=== PATIENT | female | born 1930 | race Caucasian/White ===

== ENCOUNTER 2019-12-17 18:06 | Inpatient (IN) | payer OTHER ==
[2019-12-17] MEDS ORDERED: SODIUM CHLORIDE 0.9% 500 ML INFUS.BAG IV ONE (18:24)
--- NOTE | 2019-12-17 18:24 | PDOC ---
History of Present Illness - General History Source: Patient Exam Limitations: Clinical Condition, Unresponsive - History of Present Illness Initial Comments: History limited bc patient obtunded upon arrival. Vianca Grover is an 89 YO F w a hx of parkinsons, PNA, HTN, HLD, recent stroke with new onset dysphagia who presents from [facility] because she was having a tonic clonic seizure and is likely septic. EMS states the seizure resolved after receiving versed. Patient is not able to provide any history as she is unresponsive. She arrived in the ER being bagged by EMS as they said she was profoundly hypoxic. She was also noted to be hypotensive upon arrival with a systolic in the 80's before being fluid resuscitated. I spoke with the patient's two daughters at length who are both prior RN's. 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 The patient usually goes to [facility] for her care but EMS brought her to [facility] today. Advanced directives: DNR/DNI - Does not want a central line or pressors. - Family would like IV fluids, antibiotics, CT scan, CXR, blood and urine work performed for diagnostic purposes. They want the patient to receive oxygen if she is hypoxic. They do not want any invasive life saving measures. PCP: Dr Toledo <Niall Yun - Last Filed: 12/18/19 12:33> <Nevaeh Molina - Last Filed: 12/18/19 14:59> - General Chief Complaint: Seizure Stated Complaint: SEIZURE Time Seen by Provider: 12/17/19 18:21 Past History <Niall Yun - Last Filed: 12/18/19 12:33> <Nevaeh Molina - Last Filed: 12/18/19 14:59> - Past Medical History Allergies/Adverse Reactions: Allergies Allergy/AdvReac Type Severity Reaction Status Date / Time codeine Allergy Verified 12/17/19 23:14 losartan Allergy Verified 12/17/19 23:14 Review of Systems - Review of Systems Able to Perform ROS?: No (Non-responsive) <Niall Yun - Last Filed: 12/18/19 12:33> *Physical Exam - Physical Exam General Appearance: Yes: Moderate Distress HEENT: positive: Normal ENT Inspection, Other (Pale, cold and dry) Neck: positive: Trachea midline, Supple Respiratory/Chest: positive: Labored Respiration, Crackles Cardiovascular: positive: Tachycardia Vascular Pulses: Dorsalis-Pedis (R): 2+, Doralis-Pedis (L): 2+ Gastrointestinal/Abdominal: positive: Soft Rectal Exam: positive: heme negative stool, normal rectal tone, hemorrhoids, other (Rectal temp - 100.1). negative: normal exam, melena Musculoskeletal: positive: Normal Inspection Extremity: positive: Coldness Integumentary: positive: Dry, Cold, Swelling Neurologic: positive: Respond to painful stimul <Niall Yun - Last Filed: 12/18/19 12:33> - Vital Signs Last Vital Signs Temp Pulse Resp BP Pulse Ox 100.1 F H 105 H 31 H 103/72 87 L 12/18/19 12:33 12/18/19 12:33 12/18/19 12:33 12/18/19 10:00 12/18/19 12:33 <Nevaeh Molina - Last Filed: 12/18/19 14:59> Vital Signs - Vital Signs #1 Time: 18:45 BP Location: Right Arm Blood Pressure Position: Supine Pulse Rate: 105 Respiratory Rate: 31 Temperature: 100.1 F Temperature Source: Rectal O2 Sat by Pulse Oximetry (%): 87 Oxygen Delivery Method: Room Air <Niall Yun - Last Filed: 12/18/19 12:33> ED Treatment Course - LABORATORY CBC & Chemistry Diagram: 12/18/19 05:30 12/18/19 05:30 <Niall Yun - Last Filed: 12/18/19 12:33> - LABORATORY CBC & Chemistry Diagram: 12/18/19 05:30 12/18/19 05:30 - ADDITIONAL ORDERS Additional order review: 12/17/19 19:20 RBC 3.39 L MCV 92.6 MCHC 33.0 RDW 14.4 MPV 7.7 Neutrophils % 87.7 H Lymphocytes % 6.1 L Monocytes % 5.8 Eosinophils % 0.0 Basophils % 0.4 - RADIOLOGY Radiology Studies Ordered: Category Date Time Status CHEST X-RAY PORTABLE* [RAD] Stat Radiology 12/17/19 18:22 Completed - Medications Given in the ED: ED Medications Discontinued Medications Generic Name Dose Route Start Last Admin Trade Name Barry PRN Reason Stop Dose Admin Acetaminophen 1,000 mg 12/17/19 18:25 12/17/19 19:16 Ofirmev Injection - IVPB 12/17/19 18:26 1,000 mg ONCE ONE Administration Piperacillin Sod/Tazobactam 50 mls @ 100 mls/hr 12/17/19 21:06 12/17/19 22:15 Sod 3.375 gm/ Dextrose IVPB 12/17/19 21:35 100 mls/hr ONCE ONE Administration Protocol Sodium Chloride 250 mls @ 250 mls/hr 12/18/19 00:36 12/18/19 00:50 Normal Saline - IV 12/18/19 01:35 250 mls/hr ASDIR STA Administration Sodium Chloride 1,000 mls @ 42 mls/hr 12/18/19 00:45 12/18/19 00:57 Normal Saline - IV 42 mls/hr ASDIR GARTH Administration Levetiracetam 1,000 mg 12/17/19 19:09 12/17/19 19:17 Keppra Injection - IVPB 12/17/19 19:10 1,000 mg ONCE ONE Administration Magnesium Sulfate 2 gm 12/18/19 07:45 12/18/19 10:00 Magnesium Sulfate IVPB 12/18/19 07:46 2 gm ONCE ONE Administration Sodium Chloride 1,000 ml 12/17/19 18:24 12/17/19 19:16 Normal Saline - IV 12/17/19 18:25 1,000 ml ONCE ONE Administration Vancomycin HCl 1,000 mg 12/17/19 21:06 12/17/19 22:05 Vancomycin (Pre-Docked) IVPB 12/17/19 21:07 1,000 mg ONCE ONE Administration Protocol <Nevaeh Molina - Last Filed: 12/18/19 14:59> Medical Decision Making - Medical Decision Making History limited bc patient obtunded upon arrival. Vianca Grover is an 89 YO F w a hx of parkinsons, PNA, HTN, HLD, recent stroke with new onset dysphagia who presents from [facility] because she was having a tonic clonic seizure and is likely septic. EMS states the seizure resolved after receiving versed. Patient is not able to provide any history as she is unresponsive. She arrived in the ER being bagged by EMS as they said she was profoundly hypoxic. She was also noted to be hypotensive upon arrival with a systolic in the 80's before being fluid resuscitated. I spoke with the patient's two daughters at length who are both prior RN's. Advanced directives: DNR/DNI - Does not want a central line or pressors. - Family would like IV fluids, antibiotics, CT scan, CXR, blood and urine work performed for diagnostic purposes. They want the patient to receive oxygen if she is hypoxic. They do not want any invasive life saving measures. Vital Signs Temp Pulse Resp BP Pulse Ox 100.1 F H 105 H 31 H 87 L 12/17/19 20:10 12/17/19 20:10 12/17/19 20:10 12/17/19 20:10 DDx IBNLT: Sepsis - likely PNA vs UTI vs Influenza, CVA/TIA, brain bleed, status epilepticus, electrolyte/metabolic disturbance Signing out patient to Dr. Garcia for ED workup, and final disposition <Niall Yun - Last Filed: 12/18/19 12:33> Discharge - Discharge Information Problems reviewed: Yes - Admission Yes <Niall Yun - Last Filed: 12/18/19 12:33> <Nevaeh Molina - Last Filed: 12/18/19 14:59> - Discharge Information Clinical Impression/Diagnosis: Seizure, Febrile illness, acute, Pneumonia AMS (altered mental status) Qualifiers: Altered mental status type: unspecified Qualified Code(s): R41.82 - Altered mental status, unspecified Condition: Guarded
[2019-12-17] MEDS ORDERED: ACETAMINOPHEN 1000 MG/100 ML VIAL (NON FORMULARY) IVPB ONE (18:25)
--- NOTE | 2019-12-17 18:47 | PDOC ---
Attending Attestation - Resident Resident Name: Niall Yun - ED Attending Attestation I have performed the following: I have examined & evaluated the patient, The case was reviewed & discussed with the resident, I agree w/resident's findings & plan - HPI HPI: 12/17/19 18:51 89 YOF with PMH CVA with residual dysphagia/aphasia., Parkinson's disease, DM2, hypothyroidism, b cell lymphoma, HLD, HTN, arthritis, osteoporosis, pAfib, PVD, presenting from [facility] for seizure activity and sepsis. she was found in respiratory distress, bradypneic down to 4s, EMS started bag mask ventilating. She was also hypotensive en route down to 90/50, receiving IVF. also received versed 2.5mg x1 for her seizure, which terminated. history limited from pt due to clinical condition, provided by EMS at the bedside and [facility] records. of note, pt is DNR/DNI, forms from [facility] reviewed PMD Dr Toledo 12/17/19 18:59 12/17/19 19:01 12/17/19 19:01 - Physicial Exam PE: 12/17/19 18:52 Physical exam General: somnolent, arousable to stimuli/pain. HEENT: NCAT, PERRL, EOMI, clear conjunctiva, anicteric, poor dentition. Neck: neck supple Resp: shallow breathing, diminished breath sounds b/l due to poor inspiratory effort CVS: RRR, no murmurs, 2+ peripheral pulses throughout, no peripheral edema Abdomen: soft, NTND, no rebound or guarding. Back: nontender, normal inspection and ROM MSK: no edema, CHURCH x4, ROM intact. No clubbing or cyanosis. normal bulk and tone. Extremities: no calf tenderness Neuro: somnolent. Skin: cool extremities, dry. no rash or skin discoloration. - Critical Care Time Total Critical Care Time: 30 (acute respiratory failure, sepsis) Critical Care Statement: The care of this patient involved high complexity decision making to prevent further life threatening deterioration of the patient 's condition and/or to evaluate & treat vital organ system(s) failure or risk of failure. - Medical Decision Making 12/17/19 18:55 initial vs with rectal LGF 100.1, HR 85, BP 80/50 sepsis workup. ddx. sepsis, bacteremia, UTI, pna, anemia, electrolyte/metabolic derangements, dehydration, organ failure, ARF now IVF, for her hypotension tylenol for fever keppra loaded here no sz here, s/p versed en route placed on supp O2 via nasal cannula with sats >95%, off bag mask ventilation, no cpap. DNR/DNI confirmed will contact [facility] to determine goals of care. Cinthia Jackson [phone] called at 7pm, no answer at number provided. labs/lytes, infectious workup, cxr, ct head. dispo pending s/o to Dr Quintero overnight. anticipate admission - as daughters at bedside do not want escalation of care ( pressors/central line/aggressive care, cpr, invasive procedures, dialysis) but ok with IV/hospitalization, abx, treat infection, reversible causes. 12/18/19 09:30 12/18/19 09:31
[2019-12-17] MEDS ORDERED: levETIRAcetam 500 MG/5 ML INJECTION VIAL IVPB ONE ×2 (19:09→20:02)
--- NOTE | 2019-12-17 19:22 | PDOC ---
ED Treatment Course - LABORATORY CBC & Chemistry Diagram: 12/18/19 05:30 12/18/19 05:30 Medical Decision Making - Medical Decision Making 12/17/19 19:21 Pt received on sign out from Dr. Yun. 89 y/o female presenting today with seizures. Given versed. Sepsis work up initiated. Plan to admit. DNR/DNI. No central line or vasopressors. Fluids and abx and diagnostics only. Labs, XR, CT pending. 12/17/19 19:57 EKG shows sinus rhythm with 1st degree AV block and PACs, 93 bpm, no ST elevation/depression, QTc 430, no axis deviation. 12/17/19 20:43 CT head shows no intracranial hemorrhage, moderate sized left temporal cortical infarct noted laterally of indeterminate age, small to moderate right cerebellar infarct of indeterminate age, several small chronic left cerebellar infarcts noted, moderate periventricular and subcortical ch ronic microvascular ischemic changes seen, moderate dilatation of lateral/third ventricles. 12/17/19 21:11 Labs reviewed. Laboratory Last Values WBC 9.7 K/mm3 (4.0-10.0) 12/17/19 19:20 RBC 3.39 M/mm3 (3.60-5.2) L 12/17/19 19:20 Hgb 10.4 GM/dL (10.7-15.3) L 12/17/19 19:20 Hct 31.4 % (32.4-45.2) L 12/17/19 19:20 MCV 92.6 fl (80-96) 12/17/19 19:20 MCH 30.6 pg (25.7-33.7) 12/17/19 19:20 MCHC 33.0 g/dl (32.0-36.0) 12/17/19 19:20 RDW 14.4 % (11.6-15.6) 12/17/19 19:20 Plt Count 402 K/MM3 (134-434) 12/17/19 19:20 MPV 7.7 fl (7.5-11.1) 12/17/19 19:20 Absolute Neuts (auto) 8.5 K/mm3 (1.5-8.0) H 12/17/19 19:20 Neutrophils % 87.7 % (42.8-82.8) H 12/17/19 19:20 Lymphocytes % 6.1 % (8-40) L 12/17/19 19:20 Monocytes % 5.8 % (3.8-10.2) 12/17/19 19:20 Eosinophils % 0.0 % (0-4.5) 12/17/19 19:20 Basophils % 0.4 % (0-2.0) 12/17/19 19:20 Nucleated RBC % 0 % (0-0) 12/17/19 19:20 PT with INR 11.40 SEC (9.7-13.0) 12/17/19 19:20 INR 0.97 (0.83-1.09) 12/17/19 19:20 PTT (Actin FS) 31.5 SECONDS (25.2-36.5) 12/17/19 19:20 Sodium 135 mmol/L (136-145) L 12/17/19 19:20 Potassium 4.9 mmol/L (3.5-5.1) 12/17/19 19:20 Chloride 103 mmol/L (98-107) 12/17/19 19:20 Carbon Dioxide 23 mmol/L (21-32) 12/17/19 19:20 Anion Gap 9 MMOL/L (8-16) 12/17/19 19:20 BUN 11.0 mg/dL (7-18) 12/17/19 19:20 Creatinine 0.9 mg/dL (0.55-1.3) 12/17/19 19:20 Est GFR (CKD-EPI)AfAm 66.63 12/17/19 19:20 Est GFR (CKD-EPI)NonAf 57.49 12/17/19 19:20 Random Glucose 136 mg/dL (74-106) H 12/17/19 19:20 Lactic Acid 4.2 mmol/L (0.4-2.0) H* 12/17/19 19:20 Calcium 8.3 mg/dL (8.5-10.1) L 12/17/19 19:20 Total Bilirubin 0.7 mg/dL (0.2-1) 12/17/19 19:20 AST 31 U/L (15-37) 12/17/19 19:20 ALT 18 U/L (13-61) 12/17/19 19:20 Alkaline Phosphatase 90 U/L (45-117) 12/17/19 19:20 Total Protein 6.8 g/dl (6.4-8.2) 12/17/19 19:20 Albumin 3.3 g/dl (3.4-5.0) L 12/17/19 19:20 Urine Color Yellow 12/17/19 19:05 Urine Appearance Clear 12/17/19 19:05 Urine pH 5.0 (5.0-8.0) 12/17/19 19:05 Ur Specific [place] 1.017 (1.010-1.035) 12/17/19 19:05 Urine Protein 30 (NEGATIVE) 12/17/19 19:05 Urine Glucose (UA) Negative (NEGATIVE) 12/17/19 19:05 Urine Ketones Negative (NEGATIVE) 12/17/19 19:05 Urine Blood Negative (NEGATIVE) 12/17/19 19:05 Urine Nitrite Negative (NEGATIVE) 12/17/19 19:05 Urine Bilirubin Negative (NEGATIVE) 12/17/19 19:05 Urine Urobilinogen 1.0 mg/dL (0.2-1.0) 12/17/19 19:05 Ur Leukocyte Esterase 1+ (NEGATIVE) H 12/17/19 19:05 12/17/19 21:30 CXR shows mild infiltrate at the left base no atelectasis or pneumothorax. Will start vanc/zosyn. 12/17/19 21:56 D/w JAMAAL Solo who accepts the patient for admission. 12/17/19 22:00 DPOA/Health Care Proxy: Cinthia Jackson (Daughter) [phone] 12/17/19 22:02 D/w Dr. Lobo (neuro) who recommends 750mg Keppra BID and MRI brain tomorrow morning. Discharge - Discharge Information Problems reviewed: Yes Clinical Impression/Diagnosis: Seizure, Febrile illness, acute, Pneumonia AMS (altered mental status) Qualifiers: Altered mental status type: unspecified Qualified Code(s): R41.82 - Altered mental status, unspecified Condition: Guarded - Admission Yes - Follow up/Referral - Patient Discharge Instructions - Post Discharge Activity
[2019-12-17 19:57] LABS: BASO % 0.4 % (0-2.0); HEMATOCRIT 31.4 % (32.4-45.2); HEMOGLOBIN 10.4 GM/dL (10.7-15.3); LYMPH % 6.1 % (8-40); MCH 30.6 pg (25.7-33.7); MEAN CELL VOLUME 92.6 fl (80-96); MEAN PLT VOLUME 7.7 fl (7.5-11.1); MONO % 5.8 % (3.8-10.2); NEUT % 87.7 % (42.8-82.8); PLATELET COUNT 402 K/MM3 (134-434); RBC 3.39 M/mm3 (3.60-5.2); RDW 14.4 % (11.6-15.6); WHITE BLOOD COUNT 9.7 K/mm3 (4.0-10.0)
[2019-12-17] MEDS ORDERED: ACETAMINOPHEN INJECTION 100 ML IVPB ONE (20:02)
[2019-12-17 20:09] LABS: INR 0.97 (0.83-1.09); PROTHROMBIN TIME (PATIENT) 11.4 SEC (9.7-13.0)
--- NOTE | 2019-12-17 20:11 | PDOC ---
ED Treatment Course - LABORATORY CBC & Chemistry Diagram: 12/18/19 05:30 12/18/19 05:30 - ADDITIONAL ORDERS Additional order review: 12/17/19 19:20 RBC 3.39 L MCV 92.6 MCHC 33.0 RDW 14.4 MPV 7.7 Neutrophils % 87.7 H Lymphocytes % 6.1 L Monocytes % 5.8 Eosinophils % 0.0 Basophils % 0.4 Medical Decision Making - Medical Decision Making 12/17/19 20:06 I received the patient on signout. She is DNR and DNI as per daughters who are nurses at the bedside. Pt comes with sudden altered MS in the past 24 hrs. Daughters are at the bedside and they tell us that pt was conversing and eating dinner yesterday and today she wont open her eyes and she has moaning. She is warm to the touch. BP is stable 131/70 Left arm; Abd soft NT ND +BS no rashes no c/c/e heart and lungs normall I called CT now and am sending pt over. As per daughters, pt had a stroke 2 mos ago. 12/17/19 20:[address] large ventricles; with periventricular lucencies; right cerebellar lucency and right thalamic area lucency We need to get rectal temp as well as official CT head read. UA pending 12/17/19 21:[address] all old findings. Pt has 1+ leukocytes in her urine CXR junky; single view. Likely to have a + pneumonia underlying. 12/17/19 21:07 O2sat 87% on RA. She will be admitted for pneumonia. Vanco/Zosyn ordered. 12/17/19 21:10 Pt will be admitted to the hospitalist for seizure, pneumonia, and AMS 12/17/19 21:31 mild imfiltrate of the left base. 12/17/19 22:18 flu culture pending. Pt will get neuro evaluation and MRI in house. Discharge - Discharge Information Problems reviewed: Yes Clinical Impression/Diagnosis: Seizure, Febrile illness, acute, Pneumonia AMS (altered mental status) Qualifiers: Altered mental status type: unspecified Qualified Code(s): R41.82 - Altered mental status, unspecified Condition: Guarded - Follow up/Referral - Patient Discharge Instructions - Post Discharge Activity
[2019-12-17 20:12] LABS: ACTIVATED PTT 31.5 SECONDS (25.2-36.5)
[2019-12-17 20:37] LABS: URINE APPEARANCE CLEAR; URINE BILIRUBIN NEGATIVE (NEGATIVE); URINE COLOR YELLOW; URINE GLUCOSE (UA) NEGATIVE (NEGATIVE); URINE KETONE NEGATIVE (NEGATIVE)
[2019-12-17 20:38] LABS: URINE LEUK ESTERASE 1+ (NEGATIVE); URINE NITRITE NEGATIVE (NEGATIVE); URINE PROTEIN 30 (NEGATIVE)
[2019-12-17 20:45] LABS: ALBUMIN 3.3 g/dl (3.4-5.0); BILIRUBIN,TOTAL 0.7 mg/dL (0.2-1); CALCIUM 8.3 mg/dL (8.5-10.1); CREATININE 0.9 mg/dL (0.55-1.3); TOT PROT 6.8 g/dl (6.4-8.2)
[2019-12-17 20:46] LABS: POTASSIUM 4.9 mmol/L (3.5-5.1)
[2019-12-17] MEDS ORDERED: PIPERACILLIN/TAZOB 3.375 GM 3.375 GM in DEXTROSE 5%-WATER - 50 ML IVPB ONE (21:06)
[2019-12-17] MEDS ORDERED: VANCOMYCIN 1 GM in D5W (PRE-DOCKED) 1,000 MG/250 ML IVPB ONE (21:06)
--- NOTE | 2019-12-17 21:55 | HP ---
Admitting History and Physical - Primary Care Physician PCP: Hellen Banks - Admission History of Present Illness: This is a 89 y/o female from [facility] with a PMHx of Parkinson's Disease, HTN , HLD, recent CVA with new onset Dysphagia (09/2019), Pneumonia. Who presents to the ED for tonic clonic seizure-like activity, r/o Sepsis. Patient is obtunded and family is not at bedside, to provide HPI. Per ED records: EMS states the seizure resolved after receiving versed. Patient is not able to provide any history as she is unresponsive. She arrived in the ER being bagged by EMS as they said she was profoundly hypoxic. She was also noted to be hypotensive upon arrival with a systolic in the 80's before being fluid resuscitated. I spoke with the patient's two daughters at length who are both prior RN's. They said there is a rampant outburst of the flu at the patient's usp and most people on her floor in [facility] are quarantined because too many people have the flu. The patient usually goes to [facility] for her care but EMS brought her to [facility] today. Advanced directives: DNR/DNI - Does not want a central line or pressors. - Family would like IV fluids, antibiotics, CT scan, CXR, blood and urine work performed for diagnostic purposes. They want the patient to receive oxygen if she is hypoxic. They do not want any invasive life saving measures. 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: CVA (Aphasia, Dysphagia), Parkinson's Cardiovascular: Yes: AFIB, HTN, Other (PVD) Heme/Onc: Yes: Other (B Cell Lymphoma) Musculoskeletal: Yes: Osteoarthritis Endocrine: Yes: Diabetes Mellitus, Hypothyroidism, Other (Osteoporosis) - Advance Directives Advance Directives: Yes: Health Care Proxy, DNR (DNI), MOLST - Smoking History Smoking history: Unknown if ever smoked - Social History Usual Living Arrangement: Yes: Longterm ADL: Support Services History of Recent Travel: No Home Medications - Allergies Allergies/Adverse Reactions: Allergies Allergy/AdvReac Type Severity Reaction Status Date / Time codeine Allergy Verified 12/17/19 23:14 losartan Allergy Verified 12/17/19 23:14 Family Medical History Family History: Unable to Obtain Review of Systems Unable to obtain ROS, reason: Clinical Condition Physical Examination Vital Signs: Vital Signs Temperature 100.1 F H 12/17/19 20:13 Pulse Rate 105 H 12/17/19 20:13 Respiratory Rate 31 H 12/17/19 20:13 Blood Pressure O2 Sat by Pulse Oximetry (%) 87 L 12/17/19 20:13 Constitutional: Yes: Thin, Other (Obtunded- Post Tictal) Eyes: Yes: Conjunctiva Clear, PERRL HENT: Yes: WNL, Atraumatic, Normocephalic Neck: Yes: WNL, Supple, Trachea Midline Cardiovascular: Yes: Tachycardia, S1, S2 Respiratory: Yes: Diminished, On Nasal O2 Gastrointestinal: Yes: WNL, Normal Bowel Sounds, Soft Renal/: Yes: Incontinence Breast(s): Yes: WNL Musculoskeletal: Yes: WNL Extremities: Yes: WNL Edema: No Peripheral Pulses WNL: Yes Neurological: Yes: Pre-Existing Deficit, Unresponsive, Other (Post Tictal) Psychiatric: Yes: Other (Post Tictal) Labs: CBC, BMP 12/17/19 19:20 12/17/19 19:20 Laboratory Results - last 24 hr 12/17/19 12/17/19 12/17/19 19:05 19:20 19:20 WBC 9.7 RBC 3.39 L Hgb 10.4 L Hct 31.4 L MCV 92.6 MCH 30.6 MCHC 33.0 RDW 14.4 Plt Count 402 MPV 7.7 Absolute Neuts (auto) 8.5 H Neutrophils % 87.7 H Lymphocytes % 6.1 L Monocytes % 5.8 Eosinophils % 0.0 Basophils % 0.4 Nucleated RBC % 0 PT with INR 11.40 INR 0.97 PTT (Actin FS) 31.5 VBG pH POC VBG pCO2 POC VBG pO2 VBG HCO3 VBG O2 Sat (Fabrizio) VBG Base Excess Sodium Potassium Chloride Carbon Dioxide Anion Gap BUN Creatinine Est GFR (CKD-EPI)AfAm Est GFR (CKD-EPI)NonAf Random Glucose Hemoglobin A1c % Lactic Acid Calcium Phosphorus Magnesium Total Bilirubin AST ALT Alkaline Phosphatase Total Protein Albumin TSH Free T4 Thyroxine (T4) Resin T3 Uptake Urine Color Yellow Urine Appearance Clear Urine pH 5.0 Ur Specific [place] 1.017 Urine Protein 30 Urine Glucose (UA) Negative Urine Ketones Negative Urine Blood Negative Urine Nitrite Negative Urine Bilirubin Negative Urine Urobilinogen 1.0 Ur Leukocyte Esterase 1+ H Influenza A (Rapid) Influenza B (Rapid) 12/17/19 12/17/19 12/17/19 19:20 19:20 21:57 WBC RBC Hgb Hct MCV MCH MCHC RDW Plt Count MPV Absolute Neuts (auto) Neutrophils % Lymphocytes % Monocytes % Eosinophils % Basophils % Nucleated RBC % PT with INR INR PTT (Actin FS) VBG pH POC VBG pCO2 POC VBG pO2 VBG HCO3 VBG O2 Sat (Fabrizio) VBG Base Excess Sodium 135 L Potassium 4.9 Chloride 103 Carbon Dioxide 23 Anion Gap 9 BUN 11.0 Creatinine 0.9 Est GFR (CKD-EPI)AfAm 66.63 Est GFR (CKD-EPI)NonAf 57.49 Random Glucose 136 H Hemoglobin A1c % Lactic Acid 4.2 H* Calcium 8.3 L Phosphorus Magnesium Total Bilirubin 0.7 AST 31 ALT 18 Alkaline Phosphatase 90 Total Protein 6.8 Albumin 3.3 L TSH Free T4 Thyroxine (T4) Resin T3 Uptake Urine Color Urine Appearance Urine pH Ur Specific [place] Urine Protein Urine Glucose (UA) Urine Ketones Urine Blood Urine Nitrite Urine Bilirubin Urine Urobilinogen Ur Leukocyte Esterase Influenza A (Rapid) Negative Influenza B (Rapid) Negative 12/17/19 23:20 WBC RBC Hgb Hct MCV MCH MCHC RDW Plt Count MPV Absolute Neuts (auto) Neutrophils % Lymphocytes % Monocytes % Eosinophils % Basophils % Nucleated RBC % PT with INR INR PTT (Actin FS) VBG pH POC VBG pCO2 POC VBG pO2 VBG HCO3 VBG O2 Sat (Fabrizio) VBG Base Excess Sodium Potassium Chloride Carbon Dioxide Anion Gap BUN Creatinine Est GFR (CKD-EPI)AfAm Est GFR (CKD-EPI)NonAf Random Glucose Hemoglobin A1c % Lactic Acid 1.5 Calcium Phosphorus Magnesium Total Bilirubin AST ALT Alkaline Phosphatase Total Protein Albumin TSH Free T4 Thyroxine (T4) Resin T3 Uptake Urine Color Urine Appearance Urine pH Ur Specific [place] Urine Protein Urine Glucose (UA) Urine Ketones Urine Blood Urine Nitrite Urine Bilirubin Urine Urobilinogen Ur Leukocyte Esterase Influenza A (Rapid) Influenza B (Rapid) Intake & Output 12/15/19 12/16/19 12/17/19 12/18/19 23:59 23:59 23:59 23:59 Weight 58.967 kg Current Medications Generic Name Dose Route Start Last Admin Trade Name Freq PRN Reason Stop Dose Admin Acetaminophen 650 mg 12/18/19 08:05 Ofirmev Injection - IVPB 12/19/19 08:05 Q6H PRN FEVER Heparin Sodium (Porcine) 5,000 unit 12/17/19 22:00 12/17/19 22:16 Heparin - SQ 5,000 unit BID GARTH Administration Sodium Chloride 1,000 mls @ 42 mls/hr 12/18/19 00:45 12/18/19 00:57 Normal Saline - IV 42 mls/hr ASDIR GARTH Administration Vancomycin HCl 750 mg/ 250 mls @ 166.667 mls/hr 12/18/19 10:00 Dextrose IVPB Q12H GARTH Protocol Piperacillin Sod/Tazobactam 50 mls @ 100 mls/hr 12/18/19 10:00 Sod 3.375 gm/ Dextrose IVPB Q8H-IV GARTH Protocol Piperacillin Sod/Tazobactam 50 mls @ 100 mls/hr 12/18/19 10:00 Sod 3.375 gm/ Dextrose IVPB 12/19/19 02:29 Q8H-IV GARTH Protocol Vancomycin HCl 750 mg/ 250 mls @ 166.667 mls/hr 12/18/19 10:00 Dextrose IVPB 12/18/19 23:29 Q12H GARTH Levetiracetam 750 mg 12/18/19 10:00 Keppra Injection - IVPB BID GARTH Imaging - Results Chest X-ray: Image Reviewed Cat Scan: Report Reviewed, Image Reviewed MRI: Pending EKG: Image Reviewed Problem List - Problems (1) New onset seizure Code(s): R56.9 - UNSPECIFIED CONVULSIONS (2) Sepsis Code(s): A41.9 - SEPSIS, UNSPECIFIED ORGANISM (3) Pneumonia Code(s): J18.9 - PNEUMONIA, UNSPECIFIED ORGANISM (4) Acute metabolic encephalopathy Code(s): G93.41 - METABOLIC ENCEPHALOPATHY (5) Hypertension Code(s): I10 - ESSENTIAL (PRIMARY) HYPERTENSION (6) Afib Code(s): I48.91 - UNSPECIFIED ATRIAL FIBRILLATION (7) Parkinson disease Code(s): G20 - PARKINSON'S DISEASE (8) CVA, old, aphasia Code(s): I69.320 - APHASIA FOLLOWING CEREBRAL INFARCTION (9) Diabetes mellitus Code(s): E11.9 - TYPE 2 DIABETES MELLITUS WITHOUT COMPLICATIONS (10) Hypothyroidism Code(s): E03.9 - HYPOTHYROIDISM, UNSPECIFIED Assessment/Plan This is a 89 y/o woman with a PMHx of CVA (09/2019). Admitted to Telemetry for New Onset Seizure, Acute Metabolic Encephalopathy, Sepsis, Pneumonia for further evaluation of their emergent condition. Plan: # New Onset Seizures Admit to Telemetry Continue cardiac monitoring Head CT- reviewed Keppra given in ED, will continue Appreciate Neurology consult Seizure Precautions Fall Precautions NPO Monitor CBC, BMP HgbA1c in am Gentle IVF # Acute Metabolic Encephalopathy See Above # Sepsis Likely secondary to Pneumonia qSOFA 2 Blood Cultures, Urine Culture-pending Lactic Acid 4.2, will trend Fluid Resuscitation given in ED Maintain MAP > 65 Continue Vancomycin, Zosyn ID consult Gentle IVF # Pneumonia Will treat for HAP vs Aspiration [id number] 4 Blood Cultures-pending Urine Culture-pending Vancomcyin, Zosyn started in ED, will continue renal dosing Appreciate ID consult Monitor CBC, BMP Monitor vitals #CVA hx Aphasia, Dysphagia Head CT- reviewed Appreciate Neuro consult Patient is currently obtunded likely due to new onset seizure Hold Meds for now # HTN Hold all meds secondary to Hypotension Continue cardiac monitoring Monitor renal function # Diabetes Mellitus stable BGMs Hold ISS secondary to NPO, patient is obtunded Monitor BMP # Parkinson's Disease Fall Precautions Hold meds secondary to patient's clinical condition # Afib [id number] EKG- reviewed No med list available, day team to review in am Consider Cardiology consult for further management # Hypothyroidism TSH in am No med list available, day team to review in am FEN NS@42ml/hr Replete lytes prn, Calcium Corrected 8.9 NPO DVT ppx OOB SCDs Heparin SQ Code Status: DNR/DNI, MOLST, HCP Cinthia Jackson (daughter) [phone] Dispo: Requires Inpatient Care Visit type - Emergency Visit Emergency Visit: Yes ED Registration Date: 12/17/19 Care time: The patient presented to the Emergency Department on the above date and was hospitalized for further evaluation of their emergent condition. - New Patient This patient is new to me today: Yes Date on this admission: 12/17/19 - Critical Care Critical Care patient: No
[2019-12-17] MEDS ORDERED: PIPERACILLIN/TAZOB 3.375 GM 3.375 GM/50 ML BAG IVPB ONE (22:08)
[2019-12-17] MEDS ORDERED: VANCOMYCIN 1 GRAM (PRE-DOCKED) 1,000 MG/250 ML BAG IVPB ONE (22:08)
[2019-12-17] MEDS ORDERED: HEPARIN NA (PORCINE) 5,000 UNITS/ML 1ML VIAL ONE (22:08)
[2019-12-17] MEDS: HEPARIN NA (PORCINE) 5,000 UNITS/ML 1ML VIAL SQ SCH (22:16)
[2019-12-18] MEDS ORDERED: SODIUM CHLORIDE 250 ML IV STA (00:36)
[2019-12-18] MEDS ORDERED: SODIUM CHLORIDE 1,000 ML IV SCH (00:45)
[2019-12-18 06:28] LABS: BASO % 0.7 % (0-2.0); EOS % 0.8 % (0-4.5); HEMATOCRIT 23.4 % (32.4-45.2); HEMOGLOBIN 8.2 GM/dL (10.7-15.3); LYMPH % 26.7 % (8-40); MCH 31.8 pg (25.7-33.7); MCHC 34.9 g/dl (32.0-36.0); MEAN CELL VOLUME 91.2 fl (80-96); MEAN PLT VOLUME 7.4 fl (7.5-11.1); MONO % 10.6 % (3.8-10.2); NEUT % 61.2 % (42.8-82.8); PLATELET COUNT 318 K/MM3 (134-434); RBC 2.56 M/mm3 (3.60-5.2); RDW 13.7 % (11.6-15.6); WHITE BLOOD COUNT 6.5 K/mm3 (4.0-10.0)
[2019-12-18 06:48] LABS: VENOUS PC02 33.9 mmHg (38-52); VENOUS PH 7.42 (7.31-7.41)
[2019-12-18 06:56] LABS: VENOUS PO2 < 49 mmHg (28-48)
[2019-12-18 07:30] LABS: BLOOD UREA NITROGEN 10.3 mg/dL (7-18); CALCIUM 7.8 mg/dL (8.5-10.1); CREATININE 0.7 mg/dL (0.55-1.3); MAGNESIUM 1.1 mg/dL (1.8-2.4); PHOSPHOROUS 2.7 mg/dL (2.5-4.9); POTASSIUM 3.8 mmol/L (3.5-5.1)
[2019-12-18] MEDS ORDERED: MAGNESIUM SULF 50% (8.12 MEQ/2 ML-1 GM VIAL) IVPB ONE (07:45)
[2019-12-18] MEDS ORDERED: ACETAMINOPHEN 1000 MG/100 ML VIAL (NON FORMULARY) IVPB PRN ×2 (08:05→19:47)
[2019-12-18] MEDS ORDERED: PIPERACILLIN/TAZOB 3.375 GM 3.375 GM in DEXTROSE 5%-WATER - 50 ML IVPB SCH ×2 (10:00→18:00)
[2019-12-18] MEDS ORDERED: VANCOMYCIN 750 MG in DEXTROSE 5%-WATER - 250 ML IVPB SCH ×2 (10:00→22:00)
[2019-12-18] MEDS ORDERED: levETIRAcetam 500 MG/5 ML INJECTION VIAL IVPB SCH (10:00)
[2019-12-18] MEDS ORDERED: HEPARIN NA (PORCINE) 5,000 UNITS/ML 1ML VIAL ONE (10:36)
[2019-12-18] MEDS ORDERED: PIPERACILLIN/TAZOB 3.375 GM 3.375 GM/50 ML BAG IVPB ONE (10:36)
[2019-12-18] MEDS ORDERED: MAGNESIUM SULF 50% (8.12 MEQ/2 ML-1 GM VIAL) ONE (10:36)
[2019-12-18] MEDS ORDERED: MAGNESIUM 1GM/D5W - 1 GM/100 ML IVPB IVPB ONE (10:36)
[2019-12-18] MEDS ORDERED: levETIRAcetam 500 MG/5 ML INJECTION VIAL IVPB ONE (10:59)
[2019-12-18] MEDS: HEPARIN NA (PORCINE) 5,000 UNITS/ML 1ML VIAL SQ SCH ×2 (12:00→22:20)
--- NOTE | 2019-12-18 13:19 | CON.ID ---
Consult - History of Present Illness History of Present Illness: 89 y.o. female with PMH of Parkinson's, DM, CVA 2 months ago with dysphagia, AFIB, HTN, HLD and PNA sent from [facility] after episode of tonic clonic seizure and development of unresponsiveness. In the ER, she was noted to be lethargic/unresponsive and not a source of history. Reported that as per daughters there is an Influenza outbreak. Upon arrival in the ER she was noted to be obtunded, hypotensive, hypoxic, bradycardic with a low grade fever of 100.1F and lactic acid level of 4.2. CXR reveals possible Lt basilar infiltrate vs atelectasis. CT head did not show acute findings. She was started on IV fluids and empiric broad spectrum antibiotics. Pt was At this time pt remains extremely lethargic but arousable, without obvious acute distress with O2 mask. Still with low grade fever, tachycardia. 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: CVA (Aphasia, Dysphagia), Parkinson's Cardio/Vascular: Yes: AFIB, HTN, Other (PVD) Pulmonary: No: Asthma, Bronchitis, Cancer, COPD, O2 Dependent, Pneumonia, Previously Intubated, Pulmonary Embolus, Pulmonary Fibrosis, Sleep Apnea, Other Gastrointestinal: No: Ascites, Cancer, Constipation, Crohn's Disease, Diverticulitis, Diverticulosis, Esophageal Varices, Gastritis, GERD, GI Bleed, Hemorrhoids, Hiatal Hernia, Inflamatory Bowel Disease, Irritable Bowel Disease, Pancreatitis, Peptic Ulcer Disease, Ulcerative Colitis, Other Hepatobiliary: No: Cirrhosis, Cholelithiasis, Cholecystitis, Choledocholithiasis , Hepatitis A, Hepatitis B, Hepatitis C, Other Renal/: No: Renal Failure, Renal Inusuff, BPH, Cancer, Hematuria, Hemodialysis , Neurogenic Bladder, Renal Calculi, UTI, Other Reproductive: No: Ectopic , Endometriosis, Fibroids, PID, Polycystic Ovary Syndrome, Postmenopausal, Other Heme/Onc: No: Anemia, B12 Deficiency, Bleeding Disorder, Cancer, Current Chemotherapy, Current Radiation Therapy, Hemochromatosis, Hypercoaguable State, Myeloproliferative Synd, Sickle Cell Disease, Sickle Cell Trait, Thrombocytopenia, Other Infectious Disease: No: AIDS, C-Diff, Herpes Zoster, HIV, MRSA, STD's, Tuberculosis, VREF, Other Psych: No: Addictions, Anxiety, Bipolar, Depression, Panic, Psychosis, Schizophrenia, Other Musculoskeletal: Yes: Osteoarthritis Rheumatology: No: Fibromyalgia, Gout, Lupus, Rheumatoid Arthritis, Sarcoidosis, Vasculitis, Other ENT: No: Allergic Rhinitis, Sinusitis, Other Endocrine: Yes: Diabetes Mellitus, Hypothyroidism, Other (Osteoporosis) Dermatology: No: Basal Cell, Cellulitis, Eczema, Melanoma, Psoriasis, Squamous Cell, Other - Alcohol/Substance Use Hx Alcohol Use: No - Smoking History Smoking history: Unknown if ever smoked Have you smoked in the past 12 months: No - Social History Usual Living Arrangement: Detention ADL: Support Services History of Recent Travel: No Home Medications - Allergies Allergies/Adverse Reactions: Allergies Allergy/AdvReac Type Severity Reaction Status Date / Time codeine Allergy Verified 12/17/19 23:14 losartan Allergy Verified 12/17/19 23:14 Family Medical History Family History: Unable to Obtain Review of Systems Unable to obtain ROS, reason: Pt obtunded Physical Exam Vital Signs: Vital Signs Temperature 100.1 F H 12/18/19 12:33 Pulse Rate 105 H 12/18/19 12:33 Respiratory Rate 31 H 12/18/19 12:33 Blood Pressure 103/72 12/18/19 10:00 O2 Sat by Pulse Oximetry (%) 87 L 12/18/19 12:33 Constitutional: Yes: No Distress. No: Well Nourished, Calm, Anxious, Ashen, Cachectic, Diaphoresis, Mild Distress, Moderate Distress, Severe Distress, Obese , Pallor, Poor Hygeine, Thin, Other Eyes: Yes: Conjunctiva Clear. No: WNL, EOM Intact, Cataracts, Diplopia, Occular Prosthesis, PERRL, Ptosis, Sclera Icterus, Tearing, Other HENT: Yes: Atraumatic, Normocephalic. No: WNL, Drooling, Epistaxis, Hoarseness , Nasal Congestion, Pharyngeal Erythema, Rhinnorhea, Thrush, Tonsillar Exudate, Other Neck: Yes: Supple, Trachea Midline. No: WNL, Decreased ROM, Lymphadenopathy, Rigid, Tenderness, Thyromegaly, Other Cardiovascular: Yes: Tachycardia. No: WNL, Regular Rate and Rhythm, Bradycardia , Pulse Irregular, Bruit, JVD, Gallop, Murmur, Rub, S1, S2, S3, S4, Varicosities , Other Respiratory: Yes: Diminished (poor inspiratory effort) Gastrointestinal: Yes: Normal Bowel Sounds, Soft Renal/: No: WNL, Anuria, Bladder Distention, CVA Tenderness - Left, CVA Tenderness - Right, [place]alpando Present, Hematuria, Incontinence, Menses Present, Oliguria, Polyuria, , Scrotal Edema, Urethral Discharge, Vaginal Bleeding, Vaginal Discharge, Other Musculoskeletal: Yes: WNL. No: Back Pain, Joint Stiffness, Joint Swelling, Muscle Pain, Muscle Weakness, Other Extremities: Yes: WNL. No: Amputation, Calf Tenderness, Cold, Cool, Cyanosis, Deformity, Delayed Capillary Refill, Erythema, External Rotation, Internal Rotation, Pallor, Shortened, Other Edema: No Peripheral Pulses WNL: Yes Integumentary: Yes: WNL. No: Body Piercing, Bruising, Erythema, Incision, Jaundice, Laceration, Petechiae, Pressure Ulcer, Rash, Skin Tear, Tattoos, Tenting, Onychomycosis, Venous Stasis Changes, Other Neurological: Yes: Lethargy Labs: CBC, BMP 12/18/19 05:30 12/18/19 05:30 Laboratory Tests 12/17/19 12/17/19 12/17/19 19:05 19:20 19:20 WBC 9.7 RBC 3.39 L Hgb 10.4 L Hct 31.4 L MCV 92.6 MCH 30.6 MCHC 33.0 RDW 14.4 Plt Count 402 MPV 7.7 Absolute Neuts (auto) 8.5 H Neutrophils % 87.7 H Lymphocytes % 6.1 L Monocytes % 5.8 Eosinophils % 0.0 Basophils % 0.4 Nucleated RBC % 0 PT with INR 11.40 INR 0.97 PTT (Actin FS) 31.5 VBG pH POC VBG pCO2 POC VBG pO2 VBG HCO3 VBG O2 Sat (Fabrizio) VBG Base Excess Sodium Potassium Chloride Carbon Dioxide Anion Gap BUN Creatinine Est GFR (CKD-EPI)AfAm Est GFR (CKD-EPI)NonAf Random Glucose Hemoglobin A1c % Lactic Acid Calcium Phosphorus Magnesium Total Bilirubin AST ALT Alkaline Phosphatase Total Protein Albumin TSH Free T4 Thyroxine (T4) Resin T3 Uptake Urine Color Yellow Urine Appearance Clear Urine pH 5.0 Ur Specific [place] 1.017 Urine Protein 30 Urine Glucose (UA) Negative Urine Ketones Negative Urine Blood Negative Urine Nitrite Negative Urine Bilirubin Negative Urine Urobilinogen 1.0 Ur Leukocyte Esterase 1+ H Influenza A (Rapid) Influenza B (Rapid) 12/17/19 12/17/19 12/17/19 19:20 19:20 21:57 WBC RBC Hgb Hct MCV MCH MCHC RDW Plt Count MPV Absolute Neuts (auto) Neutrophils % Lymphocytes % Monocytes % Eosinophils % Basophils % Nucleated RBC % PT with INR INR PTT (Actin FS) VBG pH POC VBG pCO2 POC VBG pO2 VBG HCO3 VBG O2 Sat (Fabrizio) VBG Base Excess Sodium 135 L Potassium 4.9 Chloride 103 Carbon Dioxide 23 Anion Gap 9 BUN 11.0 Creatinine 0.9 Est GFR (CKD-EPI)AfAm 66.63 Est GFR (CKD-EPI)NonAf 57.49 Random Glucose 136 H Hemoglobin A1c % Lactic Acid 4.2 H* Calcium 8.3 L Phosphorus Magnesium Total Bilirubin 0.7 AST 31 ALT 18 Alkaline Phosphatase 90 Total Protein 6.8 Albumin 3.3 L TSH Free T4 Thyroxine (T4) Resin T3 Uptake Urine Color Urine Appearance Urine pH Ur Specific [place] Urine Protein Urine Glucose (UA) Urine Ketones Urine Blood Urine Nitrite Urine Bilirubin Urine Urobilinogen Ur Leukocyte Esterase Influenza A (Rapid) Negative Influenza B (Rapid) Negative 12/17/19 12/18/19 12/18/19 23:20 05:30 05:30 WBC 6.5 RBC 2.56 L Hgb 8.2 L Hct 23.4 L D MCV 91.2 MCH 31.8 MCHC 34.9 RDW 13.7 Plt Count 318 D MPV 7.4 L Absolute Neuts (auto) 4.0 Neutrophils % 61.2 D Lymphocytes % 26.7 D Monocytes % 10.6 H D Eosinophils % 0.8 D Basophils % 0.7 Nucleated RBC % 0 PT with INR INR PTT (Actin FS) VBG pH POC VBG pCO2 POC VBG pO2 VBG HCO3 VBG O2 Sat (Fabrizio) VBG Base Excess Sodium 139 Potassium 3.8 Chloride 110 H Carbon Dioxide 24 Anion Gap 5 L BUN 10.3 Creatinine 0.7 Est GFR (CKD-EPI)AfAm 90.29 Est GFR (CKD-EPI)NonAf 77.90 Random Glucose 75 Hemoglobin A1c % Lactic Acid 1.5 Calcium 7.8 L Phosphorus 2.7 Magnesium 1.1 L Total Bilirubin AST ALT Alkaline Phosphatase Total Protein Albumin TSH 8.41 H Free T4 1.01 Thyroxine (T4) 7.0 Resin T3 Uptake 39.1 H Urine Color Urine Appearance Urine pH Ur Specific [place] Urine Protein Urine Glucose (UA) Urine Ketones Urine Blood Urine Nitrite Urine Bilirubin Urine Urobilinogen Ur Leukocyte Esterase Influenza A (Rapid) Influenza B (Rapid) 12/18/19 12/18/19 05:30 06:30 WBC RBC Hgb Hct MCV MCH MCHC RDW Plt Count MPV Absolute Neuts (auto) Neutrophils % Lymphocytes % Monocytes % Eosinophils % Basophils % Nucleated RBC % PT with INR INR PTT (Actin FS) VBG pH 7.42 H POC VBG pCO2 33.9 L POC VBG pO2 < 49 H VBG HCO3 21.5 L VBG O2 Sat (Fabrizio) 72.6 VBG Base Excess -2.2 L Sodium Potassium Chloride Carbon Dioxide Anion Gap BUN Creatinine Est GFR (CKD-EPI)AfAm Est GFR (CKD-EPI)NonAf Random Glucose Hemoglobin A1c % 5.6 Lactic Acid Calcium Phosphorus Magnesium Total Bilirubin AST ALT Alkaline Phosphatase Total Protein Albumin TSH Free T4 Thyroxine (T4) Resin T3 Uptake Urine Color Urine Appearance Urine pH Ur Specific [place] Urine Protein Urine Glucose (UA) Urine Ketones Urine Blood Urine Nitrite Urine Bilirubin Urine Urobilinogen Ur Leukocyte Esterase Influenza A (Rapid) Influenza B (Rapid) Influenza A/B rapid : negative Blood/Urine cultures : pending Imaging - Results Chest X-ray: Report Reviewed Cat Scan: Report Reviewed Problem List - Problems (1) AMS (altered mental status) Code(s): R41.82 - ALTERED MENTAL STATUS, UNSPECIFIED Qualifiers: Altered mental status type: unspecified Qualified Code(s): R41.82 - Altered mental status, unspecified (2) Afib Code(s): I48.91 - UNSPECIFIED ATRIAL FIBRILLATION (3) CVA, old, aphasia Code(s): I69.320 - APHASIA FOLLOWING CEREBRAL INFARCTION (4) Diabetes mellitus Code(s): E11.9 - TYPE 2 DIABETES MELLITUS WITHOUT COMPLICATIONS (5) Hypothyroidism Code(s): E03.9 - HYPOTHYROIDISM, UNSPECIFIED (6) New onset seizure Code(s): R56.9 - UNSPECIFIED CONVULSIONS (7) Parkinson disease Code(s): G20 - PARKINSON'S DISEASE (8) Pneumonia Code(s): J18.9 - PNEUMONIA, UNSPECIFIED ORGANISM (9) Sepsis Code(s): A41.9 - SEPSIS, UNSPECIFIED ORGANISM Assessment/Plan 89 y.o. female with PMH of Parkinson's, DM, CVA 2 months ago with dysphagia, AFIB, HTN, HLD and PNA sent from [facility] after episode of tonic clonic seizure and development of unresponsiveness. Noted to have low grade fevers, tachycardia, hypoxia, and elevated lactate with Lt basilar infiltrate on CXR Sepsis HCAP vs Aspiration PNA Seizure AMS Acute hypoxic respiratory failure Fever Hx of recent CVA with dysphagia Lactic acidosis - normalized Parkinson's DM Hypothyroidism AFIB HTN HLD -- continue Zosyn/Vancomycin IV empirically -- follow up blood culture results, monitor temp trend -- Vancomycin trough prior to 4th dose, monitor renal function -- supplemental O2, fluids as tolerated -- seizure/aspiration precautions -- monitor mental status, respiratory status, vitals closely -- Neurology evaluation -- Pt is DNR/DNI, with family reported to not want invasive measures Will follow Thank you
[2019-12-18] MEDS ORDERED: LORazepam 2 MG/ML SDV VIAL IM PRN (14:53)
--- NOTE | 2019-12-18 14:57 | PN ---
Progress Note, Physician History of Present Illness: pt seen/ examined in Er Chart reviewed Case d/w Pts daughter as well as RN Pt lethargic/ uncomfortable Dont follow commands - Current Medication List Current Medications: Active Medications Acetaminophen (Ofirmev Injection -) 650 mg IVPB Q6H PRN PRN Reason: FEVER Stop: 12/19/19 08:05 Heparin Sodium (Porcine) (Heparin -) 5,000 unit SQ BID GARTH Last Admin: 12/18/19 12:00 Dose: 5,000 unit Vancomycin HCl 750 mg/ (Dextrose) 250 mls @ 166.667 mls/hr IVPB Q12H GARTH; Protocol Piperacillin Sod/Tazobactam (Sod 3.375 gm/ Dextrose) 50 mls @ 100 mls/hr IVPB Q8H-IV GARTH; Protocol Potassium Chloride/Dextrose/Sod Cl (D5-1/2ns+20 Meq Kcl -) 20 meq in 1,000 mls @ 83 mls/hr IV ASDIR GARTH Levetiracetam (Keppra Injection -) 750 mg IVPB BID GARTH Last Admin: 12/18/19 14:18 Dose: 750 mg Lorazepam (Ativan Injection -) 1 mg IM BID PRN PRN Reason: ANXIETY - Objective Vital Signs: Vital Signs Temperature 100.1 F H 12/18/19 12:33 Pulse Rate 105 H 12/18/19 12:33 Respiratory Rate 31 H 12/18/19 12:33 Blood Pressure 103/72 12/18/19 10:00 O2 Sat by Pulse Oximetry (%) 87 L 12/18/19 12:33 Constitutional: Yes: Other (lethargic/ Moderate distress) Eyes: Yes: Conjunctiva Clear Neck: Yes: Supple Cardiovascular: Yes: Regular Rate and Rhythm Respiratory: Yes: Diminished Gastrointestinal: Yes: Soft Edema: No Labs: CBC, BMP 12/18/19 05:30 12/18/19 05:30 INR, PTT INR 0.97 (0.83-1.09) 12/17/19 19:20 Problem List - Problems (1) Acute metabolic encephalopathy Code(s): G93.41 - METABOLIC ENCEPHALOPATHY (2) Afib Code(s): I48.91 - UNSPECIFIED ATRIAL FIBRILLATION (3) CVA, old, aphasia Code(s): I69.320 - APHASIA FOLLOWING CEREBRAL INFARCTION (4) Diabetes mellitus Code(s): E11.9 - TYPE 2 DIABETES MELLITUS WITHOUT COMPLICATIONS (5) Hypertension Code(s): I10 - ESSENTIAL (PRIMARY) HYPERTENSION (6) Hypothyroidism Code(s): E03.9 - HYPOTHYROIDISM, UNSPECIFIED (7) New onset seizure Code(s): R56.9 - UNSPECIFIED CONVULSIONS Assessment/Plan Discuassed in detail with pts daughter goal mainly is comfort No aggressive Abx Fluids Keep NPO for now Ativan for anxiety Palliative care consult Neurology to follow Pt is DNR/ DI Will follow
[2019-12-18] MEDS ORDERED: FAMOTIDINE 20 MG/50 ML IVPB 20 MG/50 ML MG IVPB ONE (15:05)
[2019-12-18] MEDS ORDERED: ONDANSETRON 4 MG/2 ML VIAL ONE (15:05)
[2019-12-18] MEDS ORDERED: MAG HYDROX/AL HYDROX/SIMETH 30 ML UNIT-DOSE CUP ONE (15:05)
--- NOTE | 2019-12-18 15:52 | CON.NEURO ---
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: Yes: CVA (Aphasia, Dysphagia), Parkinson's Cardio/Vascular: Yes: AFIB, HTN, Other (PVD) Pulmonary: No: Asthma, Bronchitis, Cancer, COPD, O2 Dependent, Pneumonia, Previously Intubated, Pulmonary Embolus, Pulmonary Fibrosis, Sleep Apnea, Other Gastrointestinal: No: Ascites, Cancer, Constipation, Crohn's Disease, Diverticulitis, Diverticulosis, Esophageal Varices, Gastritis, GERD, GI Bleed, Hemorrhoids, Hiatal Hernia, Inflamatory Bowel Disease, Irritable Bowel Disease, Pancreatitis, Peptic Ulcer Disease, Ulcerative Colitis, Other Hepatobiliary: No: Cirrhosis, Cholelithiasis, Cholecystitis, Choledocholithiasis , Hepatitis A, Hepatitis B, Hepatitis C, Other Renal/: No: Renal Failure, Renal Inusuff, BPH, Cancer, Hematuria, Hemodialysis , Neurogenic Bladder, Renal Calculi, UTI, Other Infectious Disease: No: AIDS, C-Diff, Herpes Zoster, HIV, MRSA, STD's, Tuberculosis, VREF, Other Psych: No: Addictions, Anxiety, Bipolar, Depression, Panic, Psychosis, Schizophrenia, Other Musculoskeletal: Yes: Osteoarthritis Rheumatology: No: Fibromyalgia, Gout, Lupus, Rheumatoid Arthritis, Sarcoidosis, Vasculitis, Other ENT: No: Allergic Rhinitis, Sinusitis, Other Endocrine: Yes: Diabetes Mellitus, Hypothyroidism, Other (Osteoporosis) Dermatology: No: Basal Cell, Cellulitis, Eczema, Melanoma, Psoriasis, Squamous Cell, Other - Alcohol/Substance Use Hx Alcohol Use: No - Smoking History Smoking history: Unknown if ever smoked Have you smoked in the past 12 months: No - Social History Usual Living Arrangement: Halfway ADL: Support Services History of Recent Travel: No Home Medications - Allergies Allergies/Adverse Reactions: Allergies Allergy/AdvReac Type Severity Reaction Status Date / Time codeine Allergy Verified 12/17/19 23:14 losartan Allergy Verified 12/17/19 23:14 Physical Exam-Neuro Vital Signs: Vital Signs Temperature 100.1 F H 12/18/19 12:33 Pulse Rate 105 H 12/18/19 12:33 Respiratory Rate 31 H 12/18/19 12:33 Blood Pressure 103/72 12/18/19 10:00 O2 Sat by Pulse Oximetry (%) 87 L 12/18/19 12:33 Labs: CBC, BMP 12/18/19 05:30 12/18/19 05:30 INR, PTT INR 0.97 (0.83-1.09) 12/17/19 19:20 Assessment/Plan CC New Onset seizure HPI 89 year old female , resident of [facility]. Patient has history of PD, HTN,HLD ,Stroke ( admitted at [facility] in september 2019). She presented with pneumonia and New onset seizure. Patient is also found to have pneumonia and being treated with abx, she is not able to take her home medication. She was seen with daughter at bedside and spoke to nursing staff. Medical History of Atrial firb, htn, DM,Hyothyroidism, PD, Stroke. Allergies/Adverse Reactions: Allergies Allergy/AdvReac Type Severity Reaction Status Date / Time codeine Allergy Verified 12/17/19 23:14 losartan Allergy Verified 12/17/19 23:14 ROS,FH,SH reviewed in chart NEUROLOGICAL EXAMINATION Drowsy oriented x 0 , neck is supple there is generalized rigidity , eomi, pupils reactive no face asymmetry movign all ext ct head left temporal encephalomalacia, and there is cortical atrophy Assessment/Plan 1. New onset seizure secondary to lowering seizure threshold due to pneumonia and old stroke 2. Pneumonia Plan: continue keppra 750 mg po bid - abx as per icu - home medication can be resumed, consider ng tube if patinet is not able to take orally, - Swallow evaluation - dvt prohylaxis - supportive care, pateint is dnr and dni, mri of mri would not make difference in treatment , once patient is more stable can be performed ( spoke to nurse) Thanking you so much Samuel Freeman MD
[2019-12-18 17:36] VITALS: BMI 19.2
[2019-12-18] MEDS ORDERED: DEXTROSE 5%-WATER - 50 ML IVPB ONE (18:49)
[2019-12-18] MEDS ORDERED: PIPERACILLIN/TAZOBACTAM 3.375 GM VIAL IVPB ONE (18:49)
[2019-12-18] MEDS: D5-1/2NS+20 MEQ KCL - 20 MEQ/1,000 ML INFUS.BAG IV SCH (19:20)
[2019-12-18] MEDS: levETIRAcetam 500 MG/5 ML INJECTION VIAL IVPB SCH (22:19)
[2019-12-18] MEDS: VANCOMYCIN 750 MG in DEXTROSE 5%-WATER - 250 ML IVPB SCH (22:57)
[2019-12-19] MEDS ORDERED: PIPERACILLIN/TAZOBACTAM 3.375 GM VIAL IVPB ONE ×3 (03:10→17:21)
[2019-12-19] MEDS ORDERED: DEXTROSE 5%-WATER - 50 ML IVPB ONE ×3 (03:10→17:21)
[2019-12-19] MEDS: PIPERACILLIN/TAZOB 3.375 GM 3.375 GM in DEXTROSE 5%-WATER - 50 ML IVPB SCH ×3 (03:14→17:38)
[2019-12-19] MEDS: HEPARIN NA (PORCINE) 5,000 UNITS/ML 1ML VIAL SQ SCH ×2 (09:36→22:48)
[2019-12-19] MEDS: levETIRAcetam 500 MG/5 ML INJECTION VIAL IVPB SCH ×2 (09:36→22:20)
--- NOTE | 2019-12-19 12:11 | EKG ---
Test Reason : Blood Pressure : / mmHG Vent. Rate : 093 BPM Atrial Rate : 093 BPM P-R Int : 228 ms QRS Dur : 070 ms QT Int : 346 ms P-R-T Axes : 064 007 007 degrees QTc Int : 430 ms POOR DATA QUALITY, INTERPRETATION MAY BE ADVERSELY AFFECTED SINUS RHYTHM WITH 1ST DEGREE A-V BLOCK WITH PREMATURE ATRIAL COMPLEXES LOW VOLTAGE QRS SEPTAL INFARCT , AGE UNDETERMINED ABNORMAL ECG NO PREVIOUS ECGS AVAILABLE Confirmed by SHON PRESCOTT MD ([id number]) on 12/19/2019 12:10:43 PM Referred By: Confirmed By:SHON PRESCOTT MD
[2019-12-19] MEDS: VANCOMYCIN 750 MG in DEXTROSE 5%-WATER - 250 ML IVPB SCH ×2 (12:15→22:48)
--- NOTE | 2019-12-19 13:33 | PN ---
Progress Note (short form) - Note Progress Note: More awake daughter at bedside all consults noted/ appreciated Vital Signs Temp 97.8 F 12/19/19 08:15 Pulse 63 12/19/19 11:00 Resp 20 12/19/19 11:00 BP 133/63 12/19/19 11:00 Pulse Ox 98 12/19/19 09:00 Intake & Output 12/18/19 12/19/19 12/19/19 23:59 11:59 23:59 Intake Total 100 1346 Balance 100 1346 Weight 130 lb Intake: IV 996 D5-1/2NS+20 MEQ KCL - 20 996 meq In 1,000 ml @ 83 mls/ hr IV ASDIR [facility] Rx#: [id number] IVPB 100 350 Other: Voiding Method Diaper Diaper # Unmeasured Voids Void 2 1 Bowel Movement No No Height 5 ft 9 in Body Mass Index (BMI) 19.2 Active Medications Heparin Sodium (Porcine) (Heparin -) 5,000 unit SQ BID [facility] Last Admin: 12/19/19 09:36 Dose: 5,000 unit Potassium Chloride/Dextrose/Sod Cl (D5-1/2ns+20 Meq Kcl -) 20 meq in 1,000 mls @ 83 mls/hr IV ASDIR [facility] Last Admin: 12/18/19 19:20 Dose: 83 mls/hr Vancomycin HCl 750 mg/ (Dextrose) 250 mls @ 166.667 mls/hr IVPB Q12H [facility]; Protocol Last Admin: 12/19/19 12:15 Dose: 166.667 mls/hr Piperacillin Sod/Tazobactam (Sod 3.375 gm/ Dextrose) 50 mls @ 100 mls/hr IVPB Q8H-IV [facility]; Protocol Last Admin: 12/19/19 09:35 Dose: 100 mls/hr Levetiracetam (Keppra Injection -) 750 mg IVPB BID [facility] Last Admin: 12/19/19 09:36 Dose: 750 mg Levothyroxine Sodium (Synthroid Injection -) 12.5 mcg IM DAILY [facility] Lidocaine (Lidoderm Patch -) 1 patch TP DAILY [facility] Lorazepam (Ativan Injection -) 1 mg IM BID PRN PRN Reason: ANXIETY Miscellaneous (Lidoderm Patch Removal) 1 each MC DAILY@2200 [facility] CBC, BMP 12/18/19 05:30 12/18/19 05:30 Microbiology 12/17/19 19:05 Urine Culture - Final Urine - Urine - Catheterized NO GROWTH OBTAINED 12/17/19 19:20 Blood Culture - Preliminary Blood - Peripheral Venous NO GROWTH OBTAINED AFTER 24 HOURS, INCUBATION TO CONTINUE FOR 4 DAYS. 12/17/19 19:20 Blood Culture - Preliminary Blood - Peripheral Venous NO GROWTH OBTAINED AFTER 24 HOURS, INCUBATION TO CONTINUE FOR 4 DAYS. Abnormal Lab Results 12/18/19 05:30 Free T3 1.4 L Physical Exam Constitutional: Yes: Other (More Awake ) Eyes: Yes: Conjunctiva Clear Neck: Yes: Supple. Cardiovascular: Yes: Regular Rate and Rhythm Respiratory: Yes: Diminished Gastrointestinal: Yes: Soft Edema: No Frozen right shoulder Assessment/Plan Looks Better Abx Fluids Keep NPO for now S/S eval Ativan for anxiety lidoderm patch I/M Synthroid for now Pt is DNR/ DI Will follow D/W daughter again Problem List - Problems (1) Acute metabolic encephalopathy Code(s): G93.41 - METABOLIC ENCEPHALOPATHY (2) Afib Code(s): I48.91 - UNSPECIFIED ATRIAL FIBRILLATION (3) CVA, old, aphasia Code(s): I69.320 - APHASIA FOLLOWING CEREBRAL INFARCTION (4) Diabetes mellitus Code(s): E11.9 - TYPE 2 DIABETES MELLITUS WITHOUT COMPLICATIONS (5) Hypertension Code(s): I10 - ESSENTIAL (PRIMARY) HYPERTENSION (6) Hypothyroidism Code(s): E03.9 - HYPOTHYROIDISM, UNSPECIFIED (7) New onset seizure Code(s): R56.9 - UNSPECIFIED CONVULSIONS
[2019-12-19] MEDS: LIDOCAINE 5% TOPICAL PATCH TP SCH (15:29)
[2019-12-19] MEDS: D5-1/2NS+20 MEQ KCL - 20 MEQ/1,000 ML INFUS.BAG IV SCH (15:30)
[2019-12-19] MEDS: LEVOTHYROXINE SODIUM 100 MCG VIAL IM SCH (15:32)
--- NOTE | 2019-12-19 18:18 | PN ---
Progress Note, Physician History of Present Illness: Pt is more alert today. Verbal but not following commands. Afebrile, without acute distress. - Current Medication List Current Medications: Active Medications Heparin Sodium (Porcine) (Heparin -) 5,000 unit SQ BID [facility] Last Admin: 12/19/19 09:36 Dose: 5,000 unit Potassium Chloride/Dextrose/Sod Cl (D5-1/2ns+20 Meq Kcl -) 20 meq in 1,000 mls @ 83 mls/hr IV ASDIR [facility] Last Admin: 12/19/19 15:30 Dose: 83 mls/hr Vancomycin HCl 750 mg/ (Dextrose) 250 mls @ 166.667 mls/hr IVPB Q12H [facility]; Protocol Last Admin: 12/19/19 12:15 Dose: 166.667 mls/hr Piperacillin Sod/Tazobactam (Sod 3.375 gm/ Dextrose) 50 mls @ 100 mls/hr IVPB Q8H-IV [facility]; Protocol Last Admin: 12/19/19 17:38 Dose: 100 mls/hr Levetiracetam (Keppra Injection -) 750 mg IVPB BID [facility] Last Admin: 12/19/19 09:36 Dose: 750 mg Levothyroxine Sodium (Synthroid Injection -) 12.5 mcg IM DAILY [facility] Last Admin: 12/19/19 15:32 Dose: 12.5 mcg Lidocaine (Lidoderm Patch -) 1 patch TP DAILY [facility] Last Admin: 12/19/19 15:29 Dose: 1 patch Lorazepam (Ativan Injection -) 1 mg IM BID PRN PRN Reason: ANXIETY Miscellaneous (Lidoderm Patch Removal) 1 each MC DAILY@2200 [facility] - Objective Vital Signs: Vital Signs Temperature 97.8 F 12/19/19 15:35 Pulse Rate 62 12/19/19 15:35 Respiratory Rate 20 12/19/19 15:35 Blood Pressure 120/68 12/19/19 15:35 O2 Sat by Pulse Oximetry (%) 98 12/19/19 09:00 Constitutional: Yes: No Distress, Calm Cardiovascular: Yes: Regular Rate and Rhythm Respiratory: Yes: Regular Gastrointestinal: Yes: Normal Bowel Sounds, Soft Genitourinary: Yes: WNL Integumentary: Yes: WNL Neurological: Yes: Alert Labs: CBC, BMP 12/18/19 05:30 12/18/19 05:30 INR, PTT INR 0.97 (0.83-1.09) 12/17/19 19:20 Microbiology 12/17/19 19:05 Urine - Urine - Catheterized Urine Culture - Final NO GROWTH OBTAINED 12/17/19 19:20 Blood - Peripheral Venous Blood Culture - Preliminary NO GROWTH OBTAINED AFTER 24 HOURS, INCUBATION TO CONTINUE FOR 4 DAYS. 12/17/19 19:20 Blood - Peripheral Venous Blood Culture - Preliminary NO GROWTH OBTAINED AFTER 24 HOURS, INCUBATION TO CONTINUE FOR 4 DAYS. Problem List - Problems (1) AMS (altered mental status) Code(s): R41.82 - ALTERED MENTAL STATUS, UNSPECIFIED Qualifiers: Altered mental status type: unspecified Qualified Code(s): R41.82 - Altered mental status, unspecified (2) Afib Code(s): I48.91 - UNSPECIFIED ATRIAL FIBRILLATION (3) CVA, old, aphasia Code(s): I69.320 - APHASIA FOLLOWING CEREBRAL INFARCTION (4) Diabetes mellitus Code(s): E11.9 - TYPE 2 DIABETES MELLITUS WITHOUT COMPLICATIONS (5) Hypothyroidism Code(s): E03.9 - HYPOTHYROIDISM, UNSPECIFIED (6) New onset seizure Code(s): R56.9 - UNSPECIFIED CONVULSIONS (7) Parkinson disease Code(s): G20 - PARKINSON'S DISEASE (8) Pneumonia Code(s): J18.9 - PNEUMONIA, UNSPECIFIED ORGANISM (9) Sepsis Code(s): A41.9 - SEPSIS, UNSPECIFIED ORGANISM Assessment/Plan 89 y.o. female with PMH of Parkinson's, DM, CVA 2 months ago with dysphagia, AFIB, HTN, HLD and PNA sent from [facility] after episode of tonic clonic seizure and development of unresponsiveness. Noted to have low grade fevers, tachycardia, hypoxia, and elevated lactate with Lt basilar infiltrate on CXR Sepsis HCAP vs Aspiration PNA Seizure AMS Acute hypoxic respiratory failure Fever Hx of recent CVA with dysphagia Lactic acidosis - normalized Parkinson's DM Hypothyroidism AFIB HTN HLD -- Pt afebrile today, more alert -- continue Zosyn/Vancomycin IV empirically -- Vancomycin trough level ordered for tomorrow, monitor renal function -- supplemental O2, fluids as tolerated -- seizure/aspiration precautions -- monitor mental status, respiratory status, vitals closely -- Pt is DNR/DNI
[2019-12-19] MEDS ORDERED: PT OWN MED DRAWER 7, Y5N ONE (22:19)
[2019-12-19] MEDS: LIDOCAINE PATCH REMOVAL MC SCH (22:49)
[2019-12-20] MEDS ORDERED: PIPERACILLIN/TAZOBACTAM 3.375 GM VIAL IVPB ONE ×3 (01:56→17:45)
[2019-12-20] MEDS ORDERED: DEXTROSE 5%-WATER - 50 ML IVPB ONE ×3 (01:56→17:45)
[2019-12-20] MEDS: PIPERACILLIN/TAZOB 3.375 GM 3.375 GM in DEXTROSE 5%-WATER - 50 ML IVPB SCH ×3 (02:05→18:16)
--- NOTE | 2019-12-20 07:43 | PN ---
Progress Note, Physician History of Present Illness: seems patient is improving awake and alert in no obvious distress - Current Medication List Current Medications: Active Medications Heparin Sodium (Porcine) (Heparin -) 5,000 unit SQ BID [facility] Last Admin: 12/19/19 22:48 Dose: 5,000 unit Potassium Chloride/Dextrose/Sod Cl (D5-1/2ns+20 Meq Kcl -) 20 meq in 1,000 mls @ 83 mls/hr IV ASDIR [facility] Last Admin: 12/19/19 15:30 Dose: 83 mls/hr Vancomycin HCl 750 mg/ (Dextrose) 250 mls @ 166.667 mls/hr IVPB Q12H [facility]; Protocol Last Admin: 12/19/19 22:48 Dose: 166.667 mls/hr Piperacillin Sod/Tazobactam (Sod 3.375 gm/ Dextrose) 50 mls @ 100 mls/hr IVPB Q8H-IV [facility]; Protocol Last Admin: 12/20/19 02:05 Dose: 100 mls/hr Levetiracetam (Keppra Injection -) 750 mg IVPB BID [facility] Last Admin: 12/19/19 22:20 Dose: 750 mg Levothyroxine Sodium (Synthroid Injection -) 12.5 mcg IM DAILY [facility] Last Admin: 12/19/19 15:32 Dose: 12.5 mcg Lidocaine (Lidoderm Patch -) 1 patch TP DAILY [facility] Last Admin: 12/19/19 15:29 Dose: 1 patch Lorazepam (Ativan Injection -) 1 mg IM BID PRN PRN Reason: ANXIETY Miscellaneous (Lidoderm Patch Removal) 1 each MC DAILY@2200 [facility] Last Admin: 12/19/19 22:49 Dose: 1 each - Objective Vital Signs: Vital Signs Temperature 99.1 F 12/20/19 06:00 Pulse Rate 71 12/20/19 06:00 Respiratory Rate 20 12/20/19 06:00 Blood Pressure 111/45 L 12/20/19 06:00 O2 Sat by Pulse Oximetry (%) 98 12/20/19 00:46 Constitutional: Yes: Calm Cardiovascular: Yes: S1, S2 Respiratory: Yes: Regular, CTA Bilaterally Gastrointestinal: Yes: Normal Bowel Sounds, Soft Musculoskeletal: Yes: WNL Extremities: Yes: Other Neurological: Yes: Alert, Oriented Psychiatric: Yes: Alert Labs: CBC, BMP 12/18/19 05:30 12/18/19 05:30 INR, PTT INR 0.97 (0.83-1.09) 12/17/19 19:20 Assessment/Plan Problem List - Problems (1) AMS (altered mental status) Code(s): R41.82 - ALTERED MENTAL STATUS, UNSPECIFIED Qualifiers: Altered mental status type: unspecified Qualified Code(s): R41.82 - Altered mental status, unspecified (2) Afib Code(s): I48.91 - UNSPECIFIED ATRIAL FIBRILLATION (3) CVA, old, aphasia Code(s): I69.320 - APHASIA FOLLOWING CEREBRAL INFARCTION (4) Diabetes mellitus Code(s): E11.9 - TYPE 2 DIABETES MELLITUS WITHOUT COMPLICATIONS (5) Hypothyroidism Code(s): E03.9 - HYPOTHYROIDISM, UNSPECIFIED (6) New onset seizure Code(s): R56.9 - UNSPECIFIED CONVULSIONS (7) Parkinson disease Code(s): G20 - PARKINSON'S DISEASE (8) Pneumonia Code(s): J18.9 - PNEUMONIA, UNSPECIFIED ORGANISM (9) Sepsis Code(s): A41.9 - SEPSIS, UNSPECIFIED ORGANISM Assessment/Plan 89 y.o. female with PMH of Parkinson's, DM, CVA 2 months ago with dysphagia, AFIB, HTN, HLD and PNA sent from [facility] after episode of tonic clonic seizure and development of unresponsiveness. Noted to have low grade fevers, tachycardia, hypoxia, and elevated lactate with Lt basilar infiltrate on CXR Sepsis HCAP vs Aspiration PNA Seizure AMS Acute hypoxic respiratory failure Fever Hx of recent CVA with dysphagia Lactic acidosis - normalized Parkinson's DM Hypothyroidism AFIB HTN HLD plan will stop vanco continue zosyn swallow study asp precautions rest as per the team
[2019-12-20] MEDS: LEVOTHYROXINE SODIUM 100 MCG VIAL IM SCH (09:10)
[2019-12-20] MEDS: levETIRAcetam 500 MG/5 ML INJECTION VIAL IVPB SCH ×2 (09:10→22:56)
[2019-12-20] MEDS: HEPARIN NA (PORCINE) 5,000 UNITS/ML 1ML VIAL SQ SCH ×2 (09:11→22:58)
[2019-12-20] MEDS: LIDOCAINE 5% TOPICAL PATCH TP SCH (09:11)
--- NOTE | 2019-12-20 11:21 | PN ---
Progress Note (short form) - Note Progress Note: Pt seen/ examined awake/ comfortable all consults noted/ appreciated Vital Signs Temp 98.6 F 12/20/19 10:00 Pulse 65 12/20/19 10:00 Resp 20 12/20/19 10:00 BP 116/53 L 12/20/19 10:00 Pulse Ox 98 12/20/19 09:00 Intake & Output 12/19/19 12/19/19 12/20/19 11:59 23:59 11:59 Intake Total 1346 0 Balance 1346 0 Intake: IV 996 D5-1/2NS+20 MEQ KCL - 20 996 meq In 1,000 ml @ 83 mls/ hr IV ASDIR [facility] Rx#: [id number] IVPB 350 Oral 0 Other: Voiding Method Diaper Incontinent Incontinent # Unmeasured Voids Void 1 2 3 Bowel Movement No No Yes Active Medications Heparin Sodium (Porcine) (Heparin -) 5,000 unit SQ BID [facility] Last Admin: 12/20/19 09:11 Dose: 5,000 unit Potassium Chloride/Dextrose/Sod Cl (D5-1/2ns+20 Meq Kcl -) 20 meq in 1,000 mls @ 83 mls/hr IV [facility]IR [facility] Last Admin: 12/19/19 15:30 Dose: 83 mls/hr Piperacillin Sod/Tazobactam (Sod 3.375 gm/ Dextrose) 50 mls @ 100 mls/hr IVPB Q8H-IV [facility]; Protocol Last Admin: 12/20/19 09:10 Dose: 100 mls/hr Levetiracetam (Keppra Injection -) 750 mg IVPB BID [facility] Last Admin: 12/20/19 09:10 Dose: 750 mg Levothyroxine Sodium (Synthroid Injection -) 12.5 mcg IM DAILY [facility] Last Admin: 12/20/19 09:10 Dose: 12.5 mcg Lidocaine (Lidoderm Patch -) 1 patch TP DAILY [facility] Last Admin: 12/20/19 09:11 Dose: 1 patch Lorazepam (Ativan Injection -) 1 mg IM BID PRN PRN Reason: ANXIETY Miscellaneous (Lidoderm Patch Removal) 1 each MC DAILY@2200 [facility] Last Admin: 12/19/19 22:49 Dose: 1 each CBC, BMP 12/18/19 05:30 12/18/19 05:30 Microbiology 12/17/19 19:20 Blood Culture - Preliminary Blood - Peripheral Venous NO GROWTH OBTAINED AFTER 48 HOURS, INCUBATION TO CONTINUE FOR 3 DAYS. 12/17/19 19:20 Blood Culture - Preliminary Blood - Peripheral Venous NO GROWTH OBTAINED AFTER 48 HOURS, INCUBATION TO CONTINUE FOR 3 DAYS. 12/17/19 19:05 Urine Culture - Final Urine - Urine - Catheterized NO GROWTH OBTAINED Abnormal Lab Results 12/18/19 05:30 Free T3 1.4 L Physical Exam Constitutional: Yes: Other ( Awake ) Eyes: Yes: Conjunctiva Clear Neck: Yes: Supple. Cardiovascular: Yes: Regular Rate and Rhythm Respiratory: Yes: Diminished Gastrointestinal: Yes: Soft Edema: No Frozen right shoulder Assessment/Plan Looks Better Abx-- agree with d/c vanco - cultures -ve so far Fluids Keep NPO for now - till swallow eval Ativan for anxiety lidoderm patch I/M Synthroid for now Pt is DNR/ DI Will follow Problem List - Problems (1) Acute metabolic encephalopathy Code(s): G93.41 - METABOLIC ENCEPHALOPATHY (2) Afib Code(s): I48.91 - UNSPECIFIED ATRIAL FIBRILLATION (3) CVA, old, aphasia Code(s): I69.320 - APHASIA FOLLOWING CEREBRAL INFARCTION (4) Diabetes mellitus Code(s): E11.9 - TYPE 2 DIABETES MELLITUS WITHOUT COMPLICATIONS (5) Hypertension Code(s): I10 - ESSENTIAL (PRIMARY) HYPERTENSION (6) Hypothyroidism Code(s): E03.9 - HYPOTHYROIDISM, UNSPECIFIED (7) New onset seizure Code(s): R56.9 - UNSPECIFIED CONVULSIONS
[2019-12-20 11:26] LABS: BASO % 0.3 % (0-2.0); EOS % 0.8 % (0-4.5); HEMATOCRIT 23.2 % (32.4-45.2); HEMOGLOBIN 7.9 GM/dL (10.7-15.3); LYMPH % 20.3 % (8-40); MCH 31.2 pg (25.7-33.7); MCHC 33.9 g/dl (32.0-36.0); MEAN CELL VOLUME 91.9 fl (80-96); MEAN PLT VOLUME 7.1 fl (7.5-11.1); NEUT % 69.6 % (42.8-82.8); PLATELET COUNT 325 K/MM3 (134-434); RBC 2.53 M/mm3 (3.60-5.2); WHITE BLOOD COUNT 8.4 K/mm3 (4.0-10.0)
[2019-12-20 12:00] LABS: ALBUMIN 2.6 g/dl (3.4-5.0); BILIRUBIN,TOTAL 0.6 mg/dL (0.2-1); CALCIUM 7.9 mg/dL (8.5-10.1); CREATININE 0.7 mg/dL (0.55-1.3); POTASSIUM 3.6 mmol/L (3.5-5.1); TOT PROT 5.3 g/dl (6.4-8.2)
--- NOTE | 2019-12-20 12:13 | CONSULT ---
Admitting History and Physical - Primary Care Physician PCP: Edgar Watson - Admission History of Present Illness: Per EMR- 89 y.o. female with PMH of Parkinson's, DM, CVA 2 months ago with dysphagia, AFIB, HTN, HLD and PNA sent from [facility] after episode of tonic clonic seizure and development of unresponsiveness. In the ER, she was noted to be lethargic/unresponsive and not a source of history. Reported that as per daughters there is an Influenza outbreak. Upon arrival in the ER she was noted to be obtunded, hypotensive, hypoxic, bradycardic with a low grade fever of 100.1F and lactic acid level of 4.2. CXR reveals possible Lt basilar infiltrate vs atelectasis. CT head did not show acute findings. She was started on IV fluids and empiric broad spectrum antibiotics. Pt was At this time pt remains extremely lethargic but arousable, without obvious acute distress with O2 mask. Selected Entries 12/17/19 12/19/19 12/19/19 18:07 08:15 11:00 Temperature 100.1 F H 97.8 F Blood Pressure 101/76 124/89 133/63 12/19/19 12/19/19 12/19/19 15:35 19:00 23:00 Temperature 97.8 F 99 F 99 F Blood Pressure 120/68 127/65 131/50 L 12/20/19 12/20/19 12/20/19 03:00 06:00 10:00 Temperature 99 F 99.1 F 98.6 F Blood Pressure 111/45 L 116/53 L Laboratory Tests 12/20/19 11:02 WBC 8.4 RBC 2.53 L Hgb 7.9 L Hct 23.2 L Pt reported to have black stool this am. New labs noted. 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: CVA (Aphasia, Dysphagia), Parkinson's Cardiovascular: Yes: AFIB, HTN, Other (PVD) Pulmonary: No: Asthma, Bronchitis, Cancer, COPD, O2 Dependent, Pneumonia, Previously Intubated, Pulmonary Embolus, Pulmonary Fibrosis, Sleep Apnea, Other Gastrointestinal: No: Ascites, Cancer, Constipation, Crohn's Disease, Diverticulitis, Diverticulosis, Esophageal Varices, Gastritis, GERD, GI Bleed, Hemorrhoids, Hiatal Hernia, Inflamatory Bowel Disease, Irritable Bowel Disease, Pancreatitis, Peptic Ulcer Disease, Ulcerative Colitis, Other Hepatobiliary: No: Cirrhosis, Cholelithiasis, Cholecystitis, Choledocholithiasis , Hepatitis A, Hepatitis B, Hepatitis C, Other Renal/: No: Renal Failure, Renal Inusuff, BPH, Cancer, Hematuria, Hemodialysis , Neurogenic Bladder, Renal Calculi, UTI, Other Heme/Onc: No: Anemia, B12 Deficiency, Bleeding Disorder, Cancer, Current Chemotherapy, Current Radiation Therapy, Hemochromatosis, Hypercoaguable State, Myeloproliferative Synd, Sickle Cell Disease, Sickle Cell Trait, Thrombocytopenia, Other Infectious Disease: No: AIDS, C-Diff, Herpes Zoster, HIV, MRSA, STD's, Tuberculosis, VREF, Other Psych: No: Addictions, Anxiety, Bipolar, Depression, Panic, Psychosis, Schizophrenia, Other Musculoskeletal: Yes: Osteoarthritis Rheumatology: No: Fibromyalgia, Gout, Lupus, Rheumatoid Arthritis, Sarcoidosis, Vasculitis, Other ENT: No: Allergic Rhinitis, Sinusitis, Other Endocrine: Yes: Diabetes Mellitus, Hypothyroidism, Other (Osteoporosis) Dermatology: No: Basal Cell, Cellulitis, Eczema, Melanoma, Psoriasis, Squamous Cell, Other - Advance Directives Advance Directives: Yes: Health Care Proxy, DNR, MOLST - Smoking History Smoking history: Unknown if ever smoked Have you smoked in the past 12 months: No - Alcohol/Substance Use Hx Alcohol Use: No - Social History ADL: Support Services History of Recent Travel: No History - Admission Reason For Visit: SEIZURE, ALTERED MENTAL STATUS, PNEUMONIA - Diagnostics X-ray: Report Reviewed (CXR 12/17) CT Scan: Report Reviewed - General Mental Status: Able to Follow Commands (rare, but limited cooperation, alert but eyes closed.), Vague, Intermittently Confused, Flat Affect, Lethargic Attention: Moderate Impairment Ability to Follow Directions: Poor (occasional) Head/Neck Control: Fair - Hearing Hearing: Impaired Hearing: Impaired Hearing Aide: No With Patient: No Speech Evaluation - Communication Primary Language: PALAUAN Communication: Yes: Aphasia Oral Expression Ability: Yes: Moderate Impairment, Severe Impairment - Speech Production Able to Make Needs Known: Yes: Moderately Impaired, Severely Impaired Intelligibility: Yes: Moderately Impaired - Speech Characteristics Voice Loudness: Mildly Soft/Quiet Voice Pitch: Yes: Normal Voice Phonatory-based Quality: Yes: Strident, Dysphonia, Vocal Wetness Speech Pattern: Impaired Speech Clarity: < 25% Nasal Resonance: Normal Articulation: Yes: Imprecise - Language/Auditory Comprehension Observation: Yes/No Confusion: Yes - Swallow Evaluation/Bedside Assessment Current Nutritional Intake: NPO Dentition: Yes: Edentulous Facial Symmetry at Rest: Symmetrical Laryngeal Elevation: Impaired Laryngeal Movement: Reduced Excursion, Labored,delay initiation, Reduced Velocity Bolus Size: Small Labial Seal: WFL Oral Prep Time: Increased Timing of Swallow: Delayed Coughing/Throat Clear: Yes (throat clearing) Change in Voice: Yes (wetness) Recommendations - Speech Evaluation, Impression/Plan Impression: Eyes remained closed, with dysphonia, limited intelligible speech, worse than pt's baseline at [facility]. (Known to be- Aphasia but was speaking intermittently, improving comprehension and expressing needs, simple conversation). Swallow weak, multiple swallows generated for 1/2 tsp applesauce with vocal wetness. Suspect aspiration. - Disposition Discharge to: To be Determined - Dysphagia Impressions/Plan Swallowing Skills: Impaired Dysphagia Impressions: Severe Impairment, Ongoing Evaluation, Suspect Aspiration *Silent aspiration: cannot be R/O at bedside Recommendations: Modified Barium Swallow (when stronger, improved), Other (NPO including medication. RD re: nutritional support. Suspect NGT contraindicated with black stool/LAB results-per nursing. Clinimix, if not medically contraindicated.) - Recommendations Diet Consistency: NPO Liquids: NPO
--- NOTE | 2019-12-20 14:14 | PN ---
Progress Note (short form) - Note Progress Note: 89 year old female , resident of [facility]. Patient has history of PD, HTN,HLD, Stroke ( admitted at [facility] in september 2019). She presented with pneumonia and New onset seizure. Patient is also found to have pneumonia and being treated with abx, she is not able to take her home medication. Pateint has been stable on abx , speech is following patient NEUROLOGICAL EXAMINATION Drowsy oriented x 0 , neck is supple there is generalized rigidity , eomi, pupils reactive no face asymmetry movign all ext ct head left temporal encephalomalacia, and there is cortical atrophy Assessment/Plan 1. New onset seizure secondary to lowering seizure threshold due to pneumonia and old stroke 2. Pneumonia Plan: continue keppra 750 mg po bid - home medication can be resumed speech consult appreciated - dvt prohylaxis - supportive care, Thanking you so much Samuel Freeman MD
[2019-12-20] MEDS: D5-1/2NS+20 MEQ KCL - 20 MEQ/1,000 ML INFUS.BAG IV SCH (15:18)
[2019-12-20] MEDS: LIDOCAINE PATCH REMOVAL MC SCH (22:58)
[2019-12-21] MEDS ORDERED: PIPERACILLIN/TAZOBACTAM 3.375 GM VIAL IVPB ONE ×2 (02:34→10:59)
[2019-12-21] MEDS ORDERED: DEXTROSE 5%-WATER - 50 ML IVPB ONE ×2 (02:34→11:00)
[2019-12-21] MEDS: PIPERACILLIN/TAZOB 3.375 GM 3.375 GM in DEXTROSE 5%-WATER - 50 ML IVPB SCH ×2 (02:53→11:03)
[2019-12-21] MEDS: D5-1/2NS+20 MEQ KCL - 20 MEQ/1,000 ML INFUS.BAG IV SCH (06:24)
[2019-12-21] MEDS: levETIRAcetam 500 MG/5 ML INJECTION VIAL IVPB SCH ×2 (09:41→21:33)
[2019-12-21] MEDS: LEVOTHYROXINE SODIUM 100 MCG VIAL IM SCH (09:42)
[2019-12-21] MEDS: LIDOCAINE 5% TOPICAL PATCH TP SCH (09:43)
[2019-12-21] MEDS: HEPARIN NA (PORCINE) 5,000 UNITS/ML 1ML VIAL SQ SCH ×2 (09:44→21:32)
[2019-12-21] MEDS ORDERED: AMINO ACIDS 4.25%/D5W 1,000 ML IV SCH (12:00)
--- NOTE | 2019-12-21 12:00 | PN ---
Progress Note (short form) - Note Progress Note: Events noted lethargic not opening eyes Vital Signs - 24 hr 12/20/19 12/20/19 12/20/19 14:31 19:58 21:00 Temperature 97.9 F 99.8 F H Pulse Rate 69 72 Respiratory 20 20 20 Rate Blood Pressure 107/69 125/74 O2 Sat by Pulse 98 Oximetry (%) 12/20/19 12/21/19 12/21/19 23:00 02:00 05:24 Temperature 98.1 F 99.3 F Pulse Rate 76 84 Respiratory 19 21 H Rate Blood Pressure 141/78 153/98 O2 Sat by Pulse 98 Oximetry (%) 12/21/19 12/21/19 06:35 10:00 Temperature 98.0 F 99.0 F Pulse Rate 73 68 Respiratory 20 20 Rate Blood Pressure 150/71 125/59 L O2 Sat by Pulse Oximetry (%) Current Medications Generic Name Dose Route Start Last Admin Trade Name Freq PRN Reason Stop Dose Admin Heparin Sodium (Porcine) 5,000 unit 12/18/19 22:00 12/21/19 09:44 Heparin - SQ 5,000 unit BID GARTH Administration Piperacillin Sod/Tazobactam 50 mls @ 100 mls/hr 12/19/19 02:00 12/21/19 11:03 Sod 3.375 gm/ Dextrose IVPB 100 mls/hr Q8H-IV GARTH Administration Protocol Amino Acids 1,000 mls @ 84 mls/hr 12/21/19 12:00 Clinimix - IV Q12H GARTH Dextrose/Sodium Chloride 1,000 mls @ 75 mls/hr 12/21/19 12:00 D5-1/2ns - IV ASDIR GARTH Levetiracetam 750 mg 12/18/19 22:00 12/21/19 09:41 Keppra Injection - IVPB 750 mg BID GARTH Administration Levothyroxine Sodium 12.5 mcg 12/19/19 13:45 12/21/19 09:42 Synthroid Injection - IM 12.5 mcg DAILY GARTH Administration Lidocaine 1 patch 12/19/19 13:45 12/21/19 09:43 Lidoderm Patch - TP 1 patch DAILY GARTH Administration Lorazepam 1 mg 12/18/19 14:53 Ativan Injection - IM BID PRN ANXIETY Miscellaneous 1 each 12/19/19 22:00 12/20/19 22:58 Lidoderm Patch Removal MC 1 each DAILY@2200 GARTH Administration S1 S2 RRR Lungs decreased Abd-soft, ND No edema PLAN spoke with daughter Ms Jackson =-HCP pt has deteriorated from last hospitalization - since Sep 2019 Now lethargic does not want GT, NG No TPN palliative care eval-- daughter wishes hospice will dc iv antibiotics Problem List - Problems (1) AMS (altered mental status) Code(s): R41.82 - ALTERED MENTAL STATUS, UNSPECIFIED Qualifiers: Altered mental status type: unspecified Qualified Code(s): R41.82 - Altered mental status, unspecified (2) Acute metabolic encephalopathy Code(s): G93.41 - METABOLIC ENCEPHALOPATHY (3) Afib Code(s): I48.91 - UNSPECIFIED ATRIAL FIBRILLATION (4) CVA, old, aphasia Code(s): I69.320 - APHASIA FOLLOWING CEREBRAL INFARCTION (5) Diabetes mellitus Code(s): E11.9 - TYPE 2 DIABETES MELLITUS WITHOUT COMPLICATIONS (6) Hypertension Code(s): I10 - ESSENTIAL (PRIMARY) HYPERTENSION (7) New onset seizure Code(s): R56.9 - UNSPECIFIED CONVULSIONS (8) Pneumonia Code(s): J18.9 - PNEUMONIA, UNSPECIFIED ORGANISM
[2019-12-21] MEDS: DEXTROSE 5%-0.45% SALINE 1,000 ML IV SCH (12:32)
--- NOTE | 2019-12-21 12:32 | PN ---
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 NPO Per PMD, daughter interested in hospice.
--- NOTE | 2019-12-21 12:53 | PN ---
Progress Note, Physician History of Present Illness: lethargic - Current Medication List Current Medications: Active Medications Heparin Sodium (Porcine) (Heparin -) 5,000 unit SQ BID [facility] Last Admin: 12/21/19 09:44 Dose: 5,000 unit Dextrose/Sodium Chloride (D5-1/2ns -) 1,000 mls @ 75 mls/hr IV ASDIR [facility] Last Admin: 12/21/19 12:32 Dose: 75 mls/hr Levetiracetam (Keppra Injection -) 750 mg IVPB BID [facility] Last Admin: 12/21/19 09:41 Dose: 750 mg Levothyroxine Sodium (Synthroid Injection -) 12.5 mcg IM DAILY [facility] Last Admin: 12/21/19 09:42 Dose: 12.5 mcg Lidocaine (Lidoderm Patch -) 1 patch TP DAILY [facility] Last Admin: 12/21/19 09:43 Dose: 1 patch Lorazepam (Ativan Injection -) 1 mg IM BID PRN PRN Reason: ANXIETY Miscellaneous (Lidoderm Patch Removal) 1 each MC DAILY@2200 [facility] Last Admin: 12/20/19 22:58 Dose: 1 each - Objective Vital Signs: Vital Signs Temperature 99.0 F 12/21/19 10:00 Pulse Rate 68 12/21/19 10:00 Respiratory Rate 20 12/21/19 10:00 Blood Pressure 125/59 L 12/21/19 10:00 O2 Sat by Pulse Oximetry (%) 99 12/21/19 09:00 Constitutional: Yes: No Distress, Calm Cardiovascular: Yes: S1, S2 Respiratory: Yes: Regular, Poor Air Entry Gastrointestinal: Yes: Normal Bowel Sounds, Soft Musculoskeletal: Yes: Other Neurological: Yes: Lethargy Labs: CBC, BMP 12/20/19 11:02 12/20/19 11:02 INR, PTT INR 0.97 (0.83-1.09) 12/17/19 19:20 Assessment/Plan Problem List - Problems (1) AMS (altered mental status) Code(s): R41.82 - ALTERED MENTAL STATUS, UNSPECIFIED Qualifiers: Altered mental status type: unspecified Qualified Code(s): R41.82 - Altered mental status, unspecified (2) Afib Code(s): I48.91 - UNSPECIFIED ATRIAL FIBRILLATION (3) CVA, old, aphasia Code(s): I69.320 - APHASIA FOLLOWING CEREBRAL INFARCTION (4) Diabetes mellitus Code(s): E11.9 - TYPE 2 DIABETES MELLITUS WITHOUT COMPLICATIONS (5) Hypothyroidism Code(s): E03.9 - HYPOTHYROIDISM, UNSPECIFIED (6) New onset seizure Code(s): R56.9 - UNSPECIFIED CONVULSIONS (7) Parkinson disease Code(s): G20 - PARKINSON'S DISEASE (8) Pneumonia Code(s): J18.9 - PNEUMONIA, UNSPECIFIED ORGANISM (9) Sepsis Code(s): A41.9 - SEPSIS, UNSPECIFIED ORGANISM Assessment/Plan 89 y.o. female with PMH of Parkinson's, DM, CVA 2 months ago with dysphagia, AFIB, HTN, HLD and PNA sent from [facility] after episode of tonic clonic seizure and development of unresponsiveness. Noted to have low grade fevers, tachycardia, hypoxia, and elevated lactate with Lt basilar infiltrate on CXR Sepsis HCAP vs Aspiration PNA Seizure AMS Acute hypoxic respiratory failure Fever Hx of recent CVA with dysphagia Lactic acidosis - normalized Parkinson's DM Hypothyroidism AFIB HTN HLD plan continue zosyn nutrition asp precautions rest as per the team
--- NOTE | 2019-12-21 15:36 | PN ---
Progress Note (short form) - Note Progress Note: 89 year old female , resident of [facility]. Patient has history of PD, HTN,HLD, Stroke ( admitted at [facility] in september 2019). She presented with pneumonia and New onset seizure. Patient is also found to have pneumonia and being treated with abx, Patient is looking bright , no acute distress. NEUROLOGICAL EXAMINATION Drowsy oriented x 0 , neck is supple there is generalized rigidity , eomi, pupils reactive no face asymmetry movign all ext ct head left temporal encephalomalacia, and there is cortical atrophy Assessment/Plan 1. New onset seizure secondary to lowering seizure threshold due to pneumonia and old stroke 2. Pneumonia continue abx Plan: continue keppra 750 mg po bid now - - supportive care, Thanking you so much Samuel Freeman MD
[2019-12-21] MEDS ORDERED: PANTOPRAZOLE SODIUM 40 MG in SODIUM CHLORIDE 100 ML IVPB ONE (17:44)
--- NOTE | 2019-12-21 17:45 | PN ---
Progress Note (short form) - Note Progress Note: GI CONSULT DICTATED - PPI - SERIAL H/H - HOLD OFF ON ANY INVASIVE PROCEDURES SEE FULL CONSULT DICTATED
[2019-12-21] MEDS ORDERED: PANTOPRAZOLE SODIUM 40 MG VIAL IVPUSH ONE (18:00)
[2019-12-21] MEDS: LIDOCAINE PATCH REMOVAL MC SCH (21:43)
--- NOTE | 2019-12-21 23:33 | CONS ---
DATE OF CONSULTATION: DATE OF DICTATION: 12/21/2019 GASTROINTESTINAL CONSULTATION HISTORY OF PRESENT ILLNESS: The patient is an 89-year-old female from the [facility]. She has a past medical history of Parkinson's disease, dementia, hypertension, hyperlipidemia, recent CVA, new-onset dementia, dysphagia in September 2019, pneumonia, who was admitted from the alf facility with seizure and sepsis as well as pneumonia. During the course, she was noted to be more anemic. Stool test for blood was positive. As per the staff, no complaints of abdominal pain. No episodes of nausea, vomiting, melena, or hematochezia. In review of the record, she has not had any endoscopic evaluation recently. PAST MEDICAL AND SURGICAL HISTORY: As listed in the HPI with the addition of hypothyroidism and diabetes. SOCIAL HISTORY: Does not smoke, drink, or use drugs. FAMILY HISTORY: Noncontributory. ALLERGIES: CODEINE and LOSARTAN. HOME MEDICATIONS: Reviewed. REVIEW OF SYSTEMS: Limited secondary to her dementia. PHYSICAL EXAMINATION: Vital Signs: Temperature 97, pulse 63, blood pressure 120/94, respirations 12, oxygen saturation 99% on 2 L. General: In no acute distress. HEENT: Anicteric sclerae. Cardiovascular: S1, S2, regular rate and rhythm. Lungs: Bilaterally clear to auscultation. Abdomen: Soft, nontender. Extremities: No edema. LABORATORY: White blood cell count 8.4, hemoglobin and hematocrit 7.9 over 23, MCV 91, platelet count 325. Her hemoglobin on December 17 was 10, and on November it was 8.2. INR 0.97, sodium 139, potassium 3.6, BUN over creatinine 11 over 0.7, lactic acid 4.2 on December 17 currently is 1.5. Liver tests reveal a total bilirubin of 0.6, AST 19, ALT 14, alkaline phosphatase 62. Urine 1+ leukocyte esterase, stool for occult blood is positive. Influenza is negative. Cultures are negative so far. She did not have any abdominal imaging during this hospitalization. IMPRESSION: Normocytic anemia, fecal occult blood testing is positive. However, there is no sign of an over gastrointestinal bleed. Her etiology of normocytic anemia is likely multifactorial in nature and can be secondary to chronic disease. She may have some gastritis and may be oozing from the gastritis. RECOMMENDATION: Monitor hemoglobin and hematocrit daily while hospitalized. Keep hemoglobin between 8 and 10. Will start her on Protonix 40 mg p.o. daily. Diet as per speech and swallow. Hold any NSAIDs. Would prefer to hold off on any invasive procedures at this time considering her underlying comorbidities and the fact that she does not have signs of an overt GI bleed. Will follow. DO ISRRAEL CASEY/[id number]
[2019-12-22] MEDS: DEXTROSE 5%-0.45% SALINE 1,000 ML IV SCH ×2 (04:30→19:53)
--- NOTE | 2019-12-22 08:34 | PN ---
Progress Note (short form) - Note Progress Note: 89 year old female , resident of [facility]. Patient has history of PD, HTN,HLD, Stroke ( admitted at [facility] in september 2019). She presented with pneumonia and New onset seizure. Patient is also found to have pneumonia and being treated with abx, . Patient is not able to swallow and has improved clincally and now follwing commnad. She is waiting for hospic care. NEUROLOGICAL EXAMINATION Drowsy oriented x 0 , neck is supple there is generalized rigidity , eomi, pupils reactive no face asymmetry movign all ext ct head left temporal encephalomalacia, and there is cortical atrophy Assessment/Plan 1. New onset seizure secondary to lowering seizure threshold due to pneumonia and old stroke. continue keppra for now 2. Pneumonia continue abx Plan: continue keppra 750 mg po bid now - - supportive care, Thanking you so much Samuel Freeman MD
[2019-12-22] MEDS: LIDOCAINE 5% TOPICAL PATCH TP SCH (10:01)
[2019-12-22] MEDS: levETIRAcetam 500 MG/5 ML INJECTION VIAL IVPB SCH ×2 (10:02→21:07)
[2019-12-22] MEDS: LEVOTHYROXINE SODIUM 100 MCG VIAL IM SCH (10:02)
[2019-12-22] MEDS: HEPARIN NA (PORCINE) 5,000 UNITS/ML 1ML VIAL SQ SCH ×2 (10:02→21:07)
--- NOTE | 2019-12-22 10:09 | PN ---
Progress Note, Physician History of Present Illness: patient looks clinically stable - Current Medication List Current Medications: Active Medications Heparin Sodium (Porcine) (Heparin -) 5,000 unit SQ BID [facility] Last Admin: 12/22/19 10:02 Dose: 5,000 unit Dextrose/Sodium Chloride (D5-1/2ns -) 1,000 mls @ 75 mls/hr IV ASDIR [facility] Last Admin: 12/22/19 04:30 Dose: 75 mls/hr Levetiracetam (Keppra Injection -) 750 mg IVPB BID [facility] Last Admin: 12/22/19 10:02 Dose: 750 mg Levothyroxine Sodium (Synthroid Injection -) 12.5 mcg IM DAILY [facility] Last Admin: 12/22/19 10:02 Dose: 12.5 mcg Lidocaine (Lidoderm Patch -) 1 patch TP DAILY [facility] Last Admin: 12/22/19 10:01 Dose: 1 patch Lorazepam (Ativan Injection -) 1 mg IM BID PRN PRN Reason: ANXIETY Miscellaneous (Lidoderm Patch Removal) 1 each MC DAILY@2200 [facility] Last Admin: 12/21/19 21:43 Dose: 1 each - Objective Vital Signs: Vital Signs Temperature 97.8 F 12/22/19 07:41 Pulse Rate 103 H 12/22/19 07:41 Respiratory Rate 20 12/22/19 07:41 Blood Pressure 136/87 12/22/19 07:41 O2 Sat by Pulse Oximetry (%) 100 12/21/19 21:00 Constitutional: Yes: No Distress, Calm Cardiovascular: Yes: S1, S2 Respiratory: Yes: Regular, CTA Bilaterally Gastrointestinal: Yes: Normal Bowel Sounds, Soft Musculoskeletal: Yes: WNL Extremities: Yes: WNL Neurological: Yes: Alert Labs: CBC, BMP 12/20/19 11:02 12/20/19 11:02 INR, PTT INR 0.97 (0.83-1.09) 12/17/19 19:20 Assessment/Plan Problem List - Problems (1) AMS (altered mental status) Code(s): R41.82 - ALTERED MENTAL STATUS, UNSPECIFIED Qualifiers: Altered mental status type: unspecified Qualified Code(s): R41.82 - Altered mental status, unspecified (2) Afib Code(s): I48.91 - UNSPECIFIED ATRIAL FIBRILLATION (3) CVA, old, aphasia Code(s): I69.320 - APHASIA FOLLOWING CEREBRAL INFARCTION (4) Diabetes mellitus Code(s): E11.9 - TYPE 2 DIABETES MELLITUS WITHOUT COMPLICATIONS (5) Hypothyroidism Code(s): E03.9 - HYPOTHYROIDISM, UNSPECIFIED (6) New onset seizure Code(s): R56.9 - UNSPECIFIED CONVULSIONS (7) Parkinson disease Code(s): G20 - PARKINSON'S DISEASE (8) Pneumonia Code(s): J18.9 - PNEUMONIA, UNSPECIFIED ORGANISM (9) Sepsis Code(s): A41.9 - SEPSIS, UNSPECIFIED ORGANISM Assessment/Plan 89 y.o. female with PMH of Parkinson's, DM, CVA 2 months ago with dysphagia, AFIB, HTN, HLD and PNA sent from [facility] after episode of tonic clonic seizure and development of unresponsiveness. Noted to have low grade fevers, tachycardia, hypoxia, and elevated lactate with Lt basilar infiltrate on CXR Sepsis HCAP vs Aspiration PNA Seizure AMS Acute hypoxic respiratory failure Fever Hx of recent CVA with dysphagia Lactic acidosis - normalized Parkinson's DM Hypothyroidism AFIB HTN HLD plan abx stopped nutrition should consider feeding
--- NOTE | 2019-12-22 11:16 | PN ---
Progress Note (short form) - Note Progress Note: Events noted awake today and she wishes to eat no distress Vital Signs - 24 hr 12/21/19 12/21/19 12/21/19 15:12 18:57 21:00 Temperature 97.5 F L 97.8 F Pulse Rate 63 54 L Respiratory 20 Rate Blood Pressure 123/94 114/44 L O2 Sat by Pulse 100 Oximetry (%) 12/21/19 12/22/19 12/22/19 22:00 02:00 07:41 Temperature 97.6 F 98.1 F 97.8 F Pulse Rate 62 71 103 H Respiratory 22 H 21 H 20 Rate Blood Pressure 114/55 L 127/67 136/87 O2 Sat by Pulse Oximetry (%) 12/22/19 09:00 Temperature 97.7 F Pulse Rate 58 L Respiratory 20 Rate Blood Pressure 129/57 L O2 Sat by Pulse Oximetry (%) Current Medications Generic Name Dose Route Start Last Admin Trade Name Freq PRN Reason Stop Dose Admin Heparin Sodium (Porcine) 5,000 unit 12/18/19 22:00 12/22/19 10:02 Heparin - SQ 5,000 unit BID GARTH Administration Dextrose/Sodium Chloride 1,000 mls @ 75 mls/hr 12/21/19 12:00 12/22/19 04:30 D5-1/2ns - IV 75 mls/hr ASDIR GARTH Administration Levetiracetam 750 mg 12/18/19 22:00 12/22/19 10:02 Keppra Injection - IVPB 750 mg BID GARTH Administration Levothyroxine Sodium 12.5 mcg 12/19/19 13:45 12/22/19 10:02 Synthroid Injection - IM 12.5 mcg DAILY GARTH Administration Lidocaine 1 patch 12/19/19 13:45 12/22/19 10:01 Lidoderm Patch - TP 1 patch DAILY GARTH Administration Lorazepam 1 mg 12/18/19 14:53 Ativan Injection - IM BID PRN ANXIETY Miscellaneous 1 each 12/19/19 22:00 12/21/19 21:43 Lidoderm Patch Removal MC 1 each DAILY@2200 GARTH Administration S1 S2 RRR Lungs decreased Abd-soft, ND No edema PLAN spoke with daughter Ms Jackson =-HCP yesterday pt has deteriorated from last hospitalization - since Sep 2019 more awake-- will try feeding-->pleasure feeds does not want GT, NG No TPN palliative care eval-- daughter wishes hospice -->pt being evaluated by [facility] will dc iv antibiotics Problem List - Problems (1) AMS (altered mental status) Code(s): R41.82 - ALTERED MENTAL STATUS, UNSPECIFIED Qualifiers: Altered mental status type: unspecified Qualified Code(s): R41.82 - Altered mental status, unspecified (2) Acute metabolic encephalopathy Code(s): G93.41 - METABOLIC ENCEPHALOPATHY (3) Afib Code(s): I48.91 - UNSPECIFIED ATRIAL FIBRILLATION (4) CVA, old, aphasia Code(s): I69.320 - APHASIA FOLLOWING CEREBRAL INFARCTION (5) Diabetes mellitus Code(s): E11.9 - TYPE 2 DIABETES MELLITUS WITHOUT COMPLICATIONS (6) Hypertension Code(s): I10 - ESSENTIAL (PRIMARY) HYPERTENSION (7) New onset seizure Code(s): R56.9 - UNSPECIFIED CONVULSIONS (8) Pneumonia Code(s): J18.9 - PNEUMONIA, UNSPECIFIED ORGANISM
--- NOTE | 2019-12-22 12:08 | PN ---
Progress Note (short form) - Note Progress Note: Brief GI note No overt bleeding reported, events noted. Pts daughter wants to pursue home hospice. Please recall GI if any questions or change in clinical status.
--- NOTE | 2019-12-22 14:30 | PN ---
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 Family wanted swallowing reassessment before pt is fed. Pt alert, voice improving, less hoarse. Verbal, Aphasic, TABLE MOUNTAIN. She is aware for plan to [place], per her daughter, and she agrees to it. Attempted to assess sw ability-however, pt refused all po trials, "don't feel like it"' PO as tolerated and desired. Agree w puree/nectar. At [place], may want to liberalize diet, as desired.
[2019-12-22] MEDS: LIDOCAINE PATCH REMOVAL MC SCH (21:15)
[2019-12-23 07:51] VITALS: BP 103/51; PULSE 91; TEMP 98
[2019-12-23] MEDS: LEVOTHYROXINE SODIUM 100 MCG VIAL IM SCH (09:15)
[2019-12-23] MEDS: levETIRAcetam 500 MG/5 ML INJECTION VIAL IVPB SCH (09:15)
[2019-12-23] MEDS: HEPARIN NA (PORCINE) 5,000 UNITS/ML 1ML VIAL SQ SCH (09:23)
[2019-12-23] MEDS: LIDOCAINE 5% TOPICAL PATCH TP SCH (09:28)
--- NOTE | 2019-12-23 10:12 | PN ---
Progress Note (short form) - Note Progress Note: 89 year old female , resident of [facility]. Patient has history of PD, HTN,HLD,Stroke ( [facility] She presented with pneumonia and New onset seizure. Patient is also found to have pneumonia and being treated with abx, . Patient is not able to swallow and has improved clincally and now follwing commnad. She is waiting for hospic care. No new complain and Speech consult appreciated. NEUROLOGICAL EXAMINATION Drowsy oriented x 0 , neck is supple there is generalized rigidity , eomi, pupils reactive no face asymmetry movign all ext ct head left temporal encephalomalacia, and there is cortical atrophy [facility]inet is DNR/DNI and waiting for hospic care no peg tube placement Assessment/Plan 1. New onset seizure secondary to lowering seizure threshold due to pneumonia and old stroke. continue keppra for now 2. Pneumonia continue abx Plan: continue keppra 750 mg po bid now - - supportive care, Thanking you so much Samuel Freeman MD
--- NOTE | 2019-12-23 11:04 | DS ---
Physical Examination Vital Signs: Vital Signs Temperature 98.0 F 12/23/19 07:49 Pulse Rate 91 H 12/23/19 07:49 Respiratory Rate 18 12/23/19 07:49 Blood Pressure 103/51 L 12/23/19 07:49 O2 Sat by Pulse Oximetry (%) 98 12/22/19 21:00 Constitutional: Yes: No Distress, Calm Cardiovascular: Yes: Regular Rate and Rhythm Respiratory: Yes: CTA Bilaterally Gastrointestinal: Yes: Normal Bowel Sounds, Soft. No: Tenderness Edema: No Labs: CBC, BMP 12/20/19 11:02 12/20/19 11:02 Discharge Summary Problems reviewed: Yes Reason For Visit: SEIZURE, ALTERED MENTAL STATUS, PNEUMONIA Current Active Problems AMS (altered mental status) (Acute) Acute metabolic encephalopathy (Acute) Afib (Acute) CVA, old, aphasia (Acute) Diabetes mellitus (Acute) Hypertension (Acute) Hypothyroidism (Acute) New onset seizure (Acute) Parkinson disease (Acute) Pneumonia (Acute) Sepsis (Acute) Hospital Course: Admitting History and Physical - Primary Care Physician PCP: Hellen Banks - Admission History of Present Illness: This is a 89 y/o female from [facility] with a PMHx of Parkinson's Disease, HTN, HLD, recent CVA with new onset Dysphagia (09/2019), Pneumonia. Who presents to the ED for tonic clonic seizure-like activity, r/o Sepsis. Patient is obtunded and family is not at bedside, to provide HPI. Per ED records: EMS states the seizure resolved after receiving versed. Patient is not able to provide any his tory as she is unresponsive. She arrived in the ER being bagged by EMS as they said she was profoundly hypoxic. She was also noted to be hypotensive upon arrival with a systolic in the 80's before being fluid resuscitated. I spoke with the patient's two daughters at length who are both prior RN's. They said there is a rampant outburst of the flu at the patient's alf and most people on her floor in [facility] are quarantined because too many people have the flu. The patient usually goes to [facility] for her care but EMS brought her to [facility] today. Advanced directives: DNR/DNI - Does not want a central line or pressors. - Family would like IV fluids, antibiotics, CT scan, CXR, blood and urine work performed for diagnostic purposes. They want the patient to receive oxygen if she is hypoxic. They do not want any invasive life saving measures. ED record is noted for: (1) Sepsis- T 100.1, P 105, R 22, Spo2 87%, Lactic Acid 4.2 (2) Chest Xray- Infiltrate L- Base, ?Atelectasis (3) Influenza Neg A+B HOSPITAL COURSE She was started on IV antibiotics, fluids, and seizure meds Seen by ID, Neurology, swallow therapist and GI -- stool guaic was positive with anemia No seizures reported here Pt has waxing and waning of mental status head ct -- no acute stroke spoke with daughter Ms Jackson =-HCP yesterday pt has deteriorated from last hospitalization - since Sep 2019 more awake-- will try feeding as tolerated -->pleasure feeds does not want GT, NG No TPN palliative care eval-- daughter wishes hospice -->pt is accepted by [facility] hospice will dc iv antibiotics keep on IV seizure meds supportive care for now dc iv fluids Condition: Guarded - Instructions Referrals: Hellen Banks MD [Primary Care Provider] - Disposition: TRANSFER ACUTE CARE/OTHER HOSP
--- NOTE | 2019-12-23 12:25 | PN ---
Progress Note, Physician - Current Medication List Current Medications: Active Medications Heparin Sodium (Porcine) (Heparin -) 5,000 unit SQ BID [facility] Last Admin: 12/23/19 09:23 Dose: 5,000 unit Documented by: Dextrose/Sodium Chloride (D5-1/2ns -) 1,000 mls @ 75 mls/hr IV ASDIR [facility] Last Admin: 12/22/19 19:53 Dose: 75 mls/hr Documented by: Levetiracetam (Keppra Injection -) 750 mg IVPB BID [facility] Last Admin: 12/23/19 09:15 Dose: 750 mg Documented by: Levothyroxine Sodium (Synthroid Injection -) 12.5 mcg IM DAILY [facility] Last Admin: 12/23/19 09:15 Dose: 12.5 mcg Documented by: Lidocaine (Lidoderm Patch -) 1 patch TP DAILY [facility] Last Admin: 12/23/19 09:28 Dose: 1 patch Documented by: Lorazepam (Ativan Injection -) 1 mg IM BID PRN PRN Reason: ANXIETY Miscellaneous (Lidoderm Patch Removal) 1 each MC DAILY@2200 [facility] Last Admin: 12/22/19 21:15 Dose: 1 each Documented by: - Objective Vital Signs: Vital Signs Temperature 98.0 F 12/23/19 07:49 Pulse Rate 91 H 12/23/19 07:49 Respiratory Rate 18 12/23/19 07:49 Blood Pressure 103/51 L 12/23/19 07:49 O2 Sat by Pulse Oximetry (%) 98 12/23/19 09:00 Labs: CBC, BMP 12/20/19 11:02 12/20/19 11:02 INR, PTT INR 0.97 (0.83-1.09) 12/17/19 19:20
== END 2019-12-23 14:33 | DRG 871 ==
LOC: JER 18:06 → JERBED 21:54 → J6S 12-18 16:04
PROVIDERS: ADMIT Internal Medicine; ATTEND Internal Medicine
DX: A41.89 Other specified sepsis (principal); J18.9 Pneumonia, unspecified organism; G93.41 Metabolic encephalopathy; J96.01 Acute respiratory failure with hypoxia; C85.10 Unspecified B-cell lymphoma, unspecified site; E87.2 Acidosis; I10 Essential (primary) hypertension; E78.5 Hyperlipidemia, unspecified; G20 Parkinson's disease; R41.82 Altered mental status, unspecified; I69.391 Dysphagia following cerebral infarction; E11.9 Type 2 diabetes mellitus without complications; R56.9 Unspecified convulsions; M81.0 Age-related osteoporosis without current pathological fracture; I48.0 Paroxysmal atrial fibrillation; I73.9 Peripheral vascular disease, unspecified; R50.9 Fever, unspecified; I44.0 Atrioventricular block, first degree; E03.9 Hypothyroidism, unspecified
CPT/HCPCS: 36415; 70450-TC; 71045-TC-FY; 80048; 80053; 81003; 82272; 82803; 83036; 83605; 83735; 84100; 84436; 84439; 84443; 84479; 84481; 85025; 85610; 85730; 87040; 87086; 87804; 93005; 93010; 99285-25; G0480; J0131; J1644; J7030